=== PATIENT | male | born 1980 | race Two or more races ===

== ENCOUNTER 2023-04-01 08:01 | Emergency (ER) | payer OTHER, SELFPAY ==
[2023-04-01] VITALS (15 sets, daily range): BP systolic 118–124; BP diastolic 72–90; PULSE 96–118; RESP 10–24; TEMP 37.1; O2SAT 82–99; BMI 43.9
--- NOTE | 2023-04-01 08:09 | XR_ITS ---
The [address] [address] Patient Name: GAMA WEINBERG MRN: [id number] date: 1980 Sex: M Assigned Patient Location: ER Current Patient Location: ED.MAIN Accession/Order Number: [id number] Exam Date: 04/01/2023 08:18 Report Date: 04/01/2023 08:44 At the request of: ANANTH CARRION Procedure: XR chest 1V EXAMINATION: XR chest 1V HISTORY: sob , cough, dizziness COMPARISON: 01/30/2020 XR abdomen with PA chest FINDINGS: LUNGS: No significant pulmonary parenchymal abnormalities. VASCULATURE: No increased pulmonary vasculature. PLEURA: No pneumothorax, effusion, or pleural thickening. CARDIAC: No cardiomegaly or cardiac silhouette abnormality. MEDIASTINUM: No visible mass or adenopathy. BONES: No fracture or visible bone lesion. OTHER: Negative. XR/XR chest 1V IMPRESSION: 1. No acute cardiopulmonary process. Electronically authenticated by: TEREZA HULL Date: 04/01/2023 08:44
--- NOTE | 2023-04-01 08:09 | ECG_ITS ---
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
--- NOTE | 2023-04-01 08:19 | ED.SOB1 ---
HPI - SOB/Dyspnea General Chief Complaint: Shortness of Breath/Dyspnea Stated Complaint: SHORTNESS OF BREATH Time Seen by Provider: 04/01/23 08:08 Source: patient Mode of arrival: walk-in Limitations: no limitations History of Present Illness HPI Narrative: The patient have history of asthma presented to the ER with shortness of breath that started yesterday, he mentioned having a cough that is dry denying any nausea vomiting at the moment although he has some nausea initially. No chest pain no dizziness no headache The patient have no diarrhea and no abdominal pain no exposure to anybody with similar symptoms that he knows of The patient also was complaining of generalized body ache The patient does not use an inhaler at home Related Data Home Medications Medication Instructions Recorded Confirmed atorvastatin 20 mg tablet 20 mg PO DAILY 04/01/23 04/01/23 hydrochlorothiazide 50 mg tablet 50 mg PO DAILY 04/01/23 04/01/23 metoprolol tartrate 25 mg tablet 25 mg PO Q12H 04/01/23 04/01/23 potassium chloride 20 mEq 20 meq PO DAILY 04/01/23 04/01/23 tablet,extended release Previous Rx's Medication Instructions Recorded albuterol sulfate 90 mcg/actuation 2 inh inhalation Q6H PRN shortness 04/01/23 aerosol inhaler of breath or wheezing #6.7 grams guaifenesin 600 mg tablet, 600 mg PO BID PRN cough #20 tabs 04/01/23 extended release 12 hr (Mucinex) potassium chloride 20 mEq 40 meq PO DAILY 3 days #6 tabs 04/01/23 tablet,extended release prednisone 50 mg tablet 50 mg PO DAILY 3 days #3 tabs 04/01/23 Allergies Allergy/AdvReac Type Severity Reaction Status Date / Time No Known Drug Allergies Allergy Verified 04/01/23 08:04 Review of Systems ROS Status of ROS 10 or more systems reviewed and unremarkable except as noted in history and below Exam Narrative Exam Narrative: Nurses notes and vital signs reviewed and patient is not hypoxic. General: Well-appearing and in no apparent distress. Skin: Warm, dry, no pallor noted. No rash. Head: Normocephalic, atraumatic. Neck: Supple, non-tender. Eye: Pupils are equal, round and EOMI. No scleral icterus. Ears, Nose, Mouth, and Throat: TM are clear, no nasal mucosal hypertrophy. Oral mucosa is moist, no posterior oropharynx erythema, uvula is mid-line Cardiovascular: Regular Rate and Rhythm without murmur, gallop or rub. Respiratory: Distant breathing sound bilaterally Lungs are clear to auscultation, no wheezing, rales or rhonchi Chest Wall: no tenderness Back: No midline thoracic or lumbar vertebral tenderness. No CVA tenderness Musculoskeletal: normal ROM, no calf or popliteal tenderness, no lower extremity edema/swelling GI: Abdomen is soft, non-distended. Normal bowel sounds. No masses appreciated. No tenderness to palpation. No rebound, guarding, or rigidity noted. Neurological: A&O x4. No cranial nerve dysfunction observed. No truncal ataxia. Moves all extremities. Sensation intact. Psychiatric: Cooperative and interactive. Normal mood and affect. Constitutional Vital Signs, click to edit/add: Last Vital Signs Temp 98.8 F 04/01/23 08:04 Pulse 98 H 04/01/23 09:57 Resp 23 04/01/23 09:57 BP 118/72 04/01/23 09:57 Pulse Ox 94 L 04/01/23 09:50 O2 Del Method Room Air 04/01/23 08:40 Course Vital Signs Vital signs: Vital Signs Temperature 98.8 F 04/01/23 08:04 Pulse Rate 118 H 04/01/23 08:04 Respiratory Rate 24 04/01/23 08:04 Blood Pressure 124/90 04/01/23 08:04 Pulse Oximetry 96 04/01/23 08:04 Oxygen Delivery Method Room Air 04/01/23 08:04 Temperature 98.8 F 04/01/23 08:04 Pulse Rate 98 H 04/01/23 09:57 Respiratory Rate 23 04/01/23 09:57 Blood Pressure 118/72 04/01/23 09:57 Pulse Oximetry 94 L 04/01/23 09:50 Oxygen Delivery Method Room Air 04/01/23 08:40 MDM - SOB/Dyspnea MDM Narrative Medical decision making narrative: The patient EKG upon presentation showing sinus tachycardia with a heart rate [address] elevation or depression The patient CBC shows no leukocytosis chemistry was within normal except for the hypokalemia and acute kidney injury potassium was 2.6 and the patient was provided with p.o. potassium and The patient was provided IV fluids as well as Solu-Medrol and breathing treatment after which she was feeling better he was discharged home after he was provided with 2 doses of p.o. potassium and discharged home with 3 days of 40 mEq p.o. daily potassium after he stops his daily 20 until he is done with the 40 mEq he was provided in the ER and then he will resume his medication The patient to follow-up with his doctor within the week for further evaluation of his kidney function as well as his potassium level Magnesium level was normal and the patient was discharged with continued supportive care and hydration he is to come back to the ER in case of new symptoms The patient is to follow up with primary care physician in next 2-3 days or to return to the emergency department should any of the signs or symptoms worsen or new symptoms develop. The patient agrees with the following Diagnosis and Treatment plan and the patient will be discharged home. Lab Data Labs: Lab Results 04/01/23 Range/Units 08:16 WBC 9.1 (4.0-11.0) 10^3/uL RBC 4.78 (4.70-6.10) 10^6/uL Hgb 14.0 (14.0-18.0) g/dL Hct 42.8 (42.0-54.0) % MCV 89.5 (80.0-94.0) fL MCH 29.3 (25.9-34.0) pg MCHC 32.7 (29.9-35.2) g/dL RDW 14.6 (11.0-15.0) % Plt Count 343 (150-450) 10^3/uL MPV 8.9 L (9.5-13.5) fL Neut % (Auto) 75.3 H (43.0-75.0) % Lymph % (Auto) 5.1 L (20.5-60.0) % [place] % (Auto) 15.6 H (1.7-12.0) % Eos % (Auto) 2.9 (0.9-7.0) % Baso % (Auto) 0.7 (0.2-2.0) % Neut # (Auto) 6.8 H (1.4-6.5) 10^3/uL Lymph # (Auto) 0.5 L (1.2-3.8) 10^3/uL [place] # (Auto) 1.4 H (0.3-0.8) 10^3/uL Eos # (Auto) 0.3 (0.0-0.7) 10^3/uL Baso # (Auto) 0.1 (0.0-0.1) 10^3/uL Abs Immat Gran (auto) 0.04 H (0.00-0.03) 10^3/uL Imm/Tot Granulo (auto) 0.4 (0.0-0.5) % PT 10.6 (9.0-11.6) sec INR 1.00 Sodium 137 (136-145) mmol/L Potassium 2.6 L* (3.5-5.1) mmol/L Chloride 95 L (98-107) mmol/L Carbon Dioxide 30.6 (21.0-32.0) mmol/L Anion Gap 14.0 BUN 14.0 (7.0-18.0) mg/dL Creatinine 1.52 H (0.70-1.30) mg/dL Est GFR ( Amer) >60 (>=60) Est GFR (Non-Af Amer) 51 L (>=60) BUN/Creatinine Ratio 9.2 Glucose 125 H (74-106) mg/dL Calcium 8.4 L (8.5-10.1) mg/dL Magnesium 1.9 (1.8-2.4) mg/dL Total Bilirubin 0.3 (0.2-1.0) mg/dL AST 19 (15-37) U/L ALT 30 (16-63) U/L Alkaline Phosphatase 84 (46-116) U/L Troponin I High Sens 5.4 (4.0-76.1) pg/mL Total Protein 7.6 (6.4-8.2) g/dL Albumin 3.3 L (3.4-5.0) g/dL Globulin 4.3 g/dL Albumin/Globulin Ratio 0.8 Discharge Plan Discharge Chief Complaint: Shortness of Breath/Dyspnea Clinical Impression: Acute bronchitis, viral, Acute asthma exacerbation, Acute hypokalemia, Acute renal failure Patient Disposition: Home, Self-Care Time of Disposition Decision: 09:29 Condition: Good Prescriptions / Home Meds: New prednisone 50 mg tablet 50 mg PO DAILY 3 Days Qty: 3 0RF guaifenesin [Mucinex] 600 mg tablet extended release 12hr 600 mg PO BID PRN (Reason: cough) Qty: 20 0RF albuterol sulfate 90 mcg/actuation HFA aerosol inhaler 2 inh inhalation Q6H PRN (Reason: shortness of breath or wheezing) Qty: 6.7 0RF potassium chloride 20 mEq tablet extended release 40 meq PO DAILY 3 Days Qty: 6 0RF No Action atorvastatin 20 mg tablet 20 mg PO DAILY hydrochlorothiazide 50 mg tablet 50 mg PO DAILY metoprolol tartrate 25 mg tablet 25 mg PO Q12H potassium chloride 20 mEq tablet extended release 20 meq PO DAILY Instructions: Asthma (ED), Acute Kidney Injury (DC), Hypokalemia (ED), Acute Bronchitis (ED) Stand Alone Forms: Portal Instructions Referrals: ALEXA BELL [Primary Care Provider] - 1 week Discharge Date/Time: 04/01/23 10:05
[2023-04-01 08:26] LABS: Basophils Absolute Auto 0.1 10^3/uL (0.0-0.1); Basophils Percent Auto 0.7 % (0.2-2.0); Eosinophils Absolute Auto 0.3 10^3/uL (0.0-0.7); Eosinophils Percent Auto 2.9 % (0.9-7.0); Hematocrit 42.8 % (42.0-54.0); Immature Granulocytes Abs Auto 0.04 10^3/uL (0.00-0.03); Immature Granulocytes Pct Auto 0.4 % (0.0-0.5); Lymphocytes Absolute Auto 0.5 10^3/uL (1.2-3.8); Lymphocytes Percent Auto 5.1 % (20.5-60.0); Mean Corpuscular HGB Conc 32.7 g/dL (29.9-35.2); Mean Corpuscular Hemoglobin 29.3 pg (25.9-34.0); Mean Corpuscular Volume 89.5 fL (80.0-94.0); Mean Platelet Volume 8.9 fL (9.5-13.5); Monocytes Absolute Auto 1.4 10^3/uL (0.3-0.8); Monocytes Percent Auto 15.6 % (1.7-12.0); Neutrophils Absolute Auto 6.8 10^3/uL (1.4-6.5); Neutrophils Percent Auto 75.3 % (43.0-75.0); Platelet Count 343 10^3/uL (150-450); Red Blood Count 4.78 10^6/uL (4.70-6.10); Red Cell Distribution Width 14.6 % (11.0-15.0); White Blood Count 9.1 10^3/uL (4.0-11.0)
[2023-04-01 08:35] LABS: Prothrombin Time 10.6 sec (9.0-11.6)
[2023-04-01 08:37] LABS: Alanine Aminotransferase 30 U/L (16-63); Albumin Globulin Ratio 0.8; Albumin Level 3.3 g/dL (3.4-5.0); Alkaline Phosphatase 84 U/L (46-116); Aspartate Amino Transferase 19 U/L (15-37); BUN Creatinine Ratio 9.2; Bilirubin Total 0.3 mg/dL (0.2-1.0); Calcium 8.4 mg/dL (8.5-10.1); Carbon Dioxide 30.6 mmol/L (21.0-32.0); Chloride 95 mmol/L (98-107); Estimated GFR (African America >60 (>=60); Estimated GFR (Non-African Ame 51 (>=60); Globulin 4.3 g/dL; Glucose 125 mg/dL (74-106); Sodium 137 mmol/L (136-145); Total Protein 7.6 g/dL (6.4-8.2)
[2023-04-01 08:39] LABS: Troponin I High Sensitivity 5.4 pg/mL (4.0-76.1)
[2023-04-01] MEDS: IPRATROPIUM/ALBUTEROL SULFATE 3 ML AMPUL.NEB IH (08:39)
[2023-04-01 08:41] LABS: Potassium 2.6 mmol/L (3.5-5.1)
[2023-04-01] MEDS: METHYLPREDNISOLONE SOD SUCC PF 125 MG/2 ML VIAL IVP (08:43)
[2023-04-01 08:48] LABS: Magnesium 1.9 mg/dL (1.8-2.4)
[2023-04-01] MEDS: 0.9 % SODIUM CHLORIDE 1,000 ML 1000 ML IV (08:57)
[2023-04-01] MEDS: POTASSIUM CHLORIDE 10 MEQ ER TABLET 40 MEQ PO ×2 (08:58→10:00)
== END 2023-04-01 10:05 | disposition home or self-care (01) ==
PROVIDERS: Emergency Provider Emergency Medicine; PCP Family Medicine
DX: J20.9 Acute bronchitis, unspecified (principal); J45.901 Unspecified asthma with (acute) exacerbation; E87.6 Hypokalemia; N17.9 Acute kidney failure, unspecified
CPT/HCPCS: 36415; 71045; 80053; 83735; 84484; 85025; 85610; 93005; 94640; 96374; 99285; J2930

== ENCOUNTER 2024-09-07 19:50 | Emergency (ER) | payer OTHER, SELFPAY ==
[2024-09-07] VITALS (32 sets, daily range): BP systolic 115–152; BP diastolic 78–118; PULSE 86–117; TEMP 36.8; O2SAT 93–98; BMI 44.6
--- OUTSIDE RECORDS SUMMARY | 2024-09-07 19:56 | XMS_ITS | CCD ---
Author Organization [facility] Care Team Providers Care Kaiako Kura [place] Name Role Phone PHYSICIAN, DEFAULT Unavailable Unavailable PHYSICIAN, DEFAULT Unavailable Unavailable DR ALEXA BELL Primary Care Unavailable KAYLA CH Admitting Unavailable KAYLA CH Attending Unavailable KAYLA CH Consulting Unavailable PHILIP DODSON Consulting Unavailable DR ALEXA BELL Primary Care Unavailable MARILIA WHEELER Admitting Unavailable MARILIA WHEELER Attending Unavailable MARILIA WHEELER Consulting Unavailable Corpordebbie PAULINO, Doctor Unavailable Unavailable ALEXA BELL Attending Unavailable ALEXA BELL Attending Unavailable Gaurang Sutton MD, Mathew Unavailable Unavailabl e Gaurang Sutton MD, Mathew Unavailable Unavailabl e Gaurang Sutton MD, Mathew Unavailable Unavailabl e Gaurang Sutton MD, Mathew Unavailable Unavailabl e Gaurang Sutton MD, Mathew Unavailable Unavailabl meghna Paz MD, Doctor Unavailable Unavailable Corporate, Doctor Attending Unavailable Al Shweyenni, Mathew Attending Unavailable Mady Irving Referring Unavailable Al Shweiki, Mathew Attending Unavailable Al Shweiki, Mathew Attending Unavailable Al Shweiki, Mathew Attending Unavailable Al Shweiki, Mathew Attending Unavailable No Referring Doc, No Ref Doc Referring Kacey vailable Al Shweiki, Mathew Attending Unavailable Al Shweiki, Mathew Attending Unavailable No Referring Doc, No Ref Doc Referring Kacey vailable Al Shweiki, Mathew Attending Unavailable Al Shweiki, Mathew Referring Unavailable Corporate, Doctor Attending Unavailable Mady Irving Referring Unavailable Al Shweiki, Mathew Attending Unavailable Al Shweiki, Mathew Attending Unavailable Al Shweiki, Mathew Attending Unavailable Corporate, Doctor Attending Unavailable Al Shweiki, Mathew Attending Unavailable Corporate, Doctor Attending Unavailable Al Shweyenni, Mathew Attending Unavailable Gaurang Sutton MD, Mathew Unavailable Unavailabl e Medications Current Medications Medication Drug Class(es) Dates Sig (Normalized) Sig (Original) dorzolamide 20 mg/ml ophthalmic solution (13 sources) Carbonic Anhydrase Inhibitor Start: 06-04-2024 End: 08-11-2024 take 1 drop(s) into the eye(s) three times daily DORZOLAMIDE HCL 2% EYE DROPS INSTILL 1 DROP IN BOTH EYES 3 TIMES A DAY - Active Start: 05-07-2024 End: 06-04-2024 take 1 drop(s) into the eye(s) three times daily dorzolamide 2 % eye drops instill 1 drop by ophthalmic route 3 times every day into both eyes 1 drop - No Longer Active substitutions are acceptable Start: 01-04-2024 take 1 drop(s) into the eye(s) three times daily dorzolamide 2 % eye drops instill 1 drop by ophthalmic route 3 times every day into both eyes 1 drop - Active substitutions are acceptable Comment on above: substitutions are ac ceptable hydroCHLOROthiazide 50 mg oral tablet (8 sources) Thiazide Diuretic take 1 tablet by mouth once daily hydrochlorothiazide 50 mg tablet take 1 tablet by oral route every day 50 MG - Active metoprolol tartrate 25 mg oral tablet (8 sources) beta-Adrenergic Moni take 1 tablet by mouth twice daily metoprolol tartrate 25 mg tablet take 1 tablet by oral route 2 times every day 25 MG - Active rosuvastatin calcium 5 mg oral tablet (8 sources) HMG-CoA Reductase Inhibitor take 1 tablet by mouth once daily Crestor 5 mg tablet take 1 tablet by oral route every day 5 MG - Active Completed/Discontinued Medications Medication Drug Class(es) Dates Sig (Normalized) Sig (Original) dorzolamide 2 % (PF) eye drops (3 sources) Start: 01-04-2024 End: 01-04-2024 take 1 drop(s) into the eye(s) three times daily dorzolamide 2 % (PF) eye drops instill 1 DROP IN BOTH EYES THREE TIMES DAILY - No Longer Active Start: 01-02-2024 End: 01-04-2024 take 1 drop(s) into the eye(s) three times daily dorzolamide 2 % (PF) eye drops instill 1 DROP IN BOTH EYES THREE TIMES DAILY - No Longer Active Problems Active Problems Problem Classification Problem Date Documented Da te Episodic/Chronic Blindness and vision defects (20 sources) Unspecified night blindness Episodic Cataract (20 sources) Posterior subcapsular polar age-related cataract, bilateral; Translations: [Anterior chamber intraocular lens present] Onset: 05-07-2024 Chronic Other aftercare (1 source) Other oysterman (current) drug therapy; Translations: [OTH RADIO ENGINEER CURRENT DRUG THERAPY] Onset: 07-04-2022 Episodic Other circulatory disease (20 sources) Elevated blood-pressure reading, without diagnosis of hypertension Episodic Other eye disorders (8 sources) Tear film insufficiency; Translations: [Tear film insufficiency] Episodic Other eye disorders (15 sources) Dry eye syndrome of bilateral lacrimal glands; Translations: [Dry eye syndrome, bilateral] Onset: 05-07-2024 Episodic Other nutritional; endocrine; and metabolic disorders (1 source) Body mass index (BMI) 40.0-44.9, adult; Translations: [BODY MASS INDEX BMI 40.0-44.9 ADULT] Onset: 07-04-2022 Chronic Other nutritional; endocrine; and metabolic disorders (1 source) Morbid (severe) obesity due to excess calories; Translations: [MORBID SEVERE OBES D/T EXCESS OLIVE] Onset: 07-04-2022 Chronic Residual codes; unclassified (1 source) Acquired absence of other specified parts of digestive tract; Translations: [ACQ ABSENCE OTH PART DIGESTV TRACT] Onset: 07-04-2022 Episodic Retinal detachments; defects; vascular occlusion; and retinopathy (20 sources) Retinitis pigmentosa; 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, bilateral] Onset: 07-10-2018 Resolved: 03-15-2022 11-17-2015 Chronic Substance-related disorders (1 source) Nicotine dependence, cigarettes, uncomplicated; Translations: [NICOTINE DEPEND CIGARETTES UNCOMP] Onset: 07-04-2022 Chronic Unclassified (3 sources) LOW BACK PAIN, UNSPECIFIED; Translations: [LOW BACK PAIN, UNSPECIFIED] Onset: 07-04-2022 Past or Other Problems Problem Classification Problem Date Documented Date Episodic/Chronic Abdominal pain (3 sources) Unspecified abdominal pain; Translations: [UNSPECIFIED ABDOMINAL PAIN] Onset: 12-04-2021 Episodic Noninfectious gastroenteritis (1 source) Noninfective gastroenteritis and colitis, unspecified; Translations: [NONINFECTIVE GE AND COLITIS UNS] Onset: 12-06-2021 Episodic Unclassified (1 source) LOW BACK PAIN, UNSPECIFIED; Translations: [LOW BACK PAIN, UNSPECIFIED] Onset: 07-03-2022 Unclassified (8 sources) CMD (chief complaint) Onset: 03-14-2023 Unclassified (16 sources) blurry vision (chief complaint) Onset: 11-17-2015 Resolved: 11-06-2018 Unclassified (8 sources) cystoid macular degeneration (chief complaint) bright flashes of light (chief complaint) Onset: 08-21-2018 Unclassified (8 sources) CME (chief complaint) blurred vision (chief complaint) flashes (chief complaint) Onset: 05-29-2018 Unclassified (8 sources) CME (chief complaint) blurry vision (chief complaint) Onset: 01-23-2018 Unclassified (8 sources) cystoid macular edema (chief complaint) stable vision (chief complaint) Onset: 10-24-2017 Unclassified (8 sources) cystoid macular degeneration (chief complaint) blurry vision improvement (chief complaint) Onset: 09-26-2017 Unclassified (8 sources) possible new cystic edema (chief complaint) blurry vision (chief complaint) Onset: 08-22-2017 Unclassified (7 sources) retinitis pigmentosa/ CME (chief complaint) Onset: 01-02-2024 Results Test Name Value Interpretation Reference Range Facility CBC AUTO DIFFon 07-03-2022 BASO # 0.1 103/ul Normal 0.0-0.1 [facility] Comment on above: Performed By: #### C BC #### [facility] [address] [place] [address] Dr. Telma Miller Basophils/100 WBC (Bld) 0.8 % Normal 0.2-2.0 [facility] Comment on above: Performed By: #### C BC #### [facility] [address] [place] [address] Dr. Telma Miller EO # 0.3 103/ul Normal 0.0-0.7 [facility] Comment on above: Performed By: #### C BC #### [facility] [address] [place] [address] Dr. Telma Miller Eosinophils/100 WBC (Bld) 2.3 % Normal 0.9-7.0 [facility] Comment on above: Performed By: #### C BC #### [facility] [address] [place] [address] Dr. Telma Miller Erythrocyte distribution width (RBC) [Ratio] 19.7 % Critically high 11.0-15.0 [facility] Comment on above: Performed By: #### C BC #### [facility] [address] [place] [address] Dr. Telma Miller Hematocrit (Bld) [Volume fraction] 34.4 % Critically low 42.0-54.0 [facility] Comment on above: Performed By: #### C BC #### [facility] [address] [place] [address] Dr. Telma Miller Hemoglobin (Bld) [Mass/Vol] 9.9 g/dL Critically low 14.0-18.0 [facility] Comment on above: Performed By: #### C BC #### [facility] [address] [place] [address] Dr. Telma Miller IG # 0.05 10e3/ul Critically high 0.00-0.03 [facility] Comment on above: Performed By: #### C BC #### [facility] [address] [place] [address] Dr. Telma Miller IG % 0.5 % Normal 0.0-0.5 [facility] Comment on above: Performed By: #### C BC #### [facility] [address] [place] [address] Dr. Telma Miller LYMPH # 1.9 103/ul Normal 1.2-3.8 [facility] Comment on above: Performed By: #### C BC #### [facility] [address] [place] [address] Dr. Telma Miller Lymphocytes/100 WBC (Bld) 17.6 % Critically low 20.5-60.0 [facility] Comment on above: Performed By: #### C BC #### [facility] [address] [place] [address] Dr. Telma Miller MANUAL DIFF REQ NO Normal [facility] Comment on above: Performed By: #### C BC #### [facility] [address] [place] [address] Dr. Telma Miller MCH (RBC) [Entitic mass] 20.1 pg Critically low 25.9-34.0 [facility] Comment on above: Performed By: #### C BC #### [facility] [address] [place] [address] Dr. Telma Miller MCHC (RBC) [Mass/Vol] 28.8 g/dL Critically low 29.9-35.2 [facility] Comment on above: Performed By: #### C BC #### [facility] [address] [place] [address] Dr. Telma Miller MCV (RBC) [Entitic vol] 69.8 fL Critically low 80.0-94.0 [facility] Comment on above: Performed By: #### C BC #### [facility] [address] [place] [address] Dr. Telma Miller MONO # 1.0 103/ul Critically high 0.3-0.8 [facility] Comment on above: Performed By: #### C BC #### [facility] [address] [place] [address] Dr. Telma Miller Monocytes/100 WBC (Bld) 8.8 % Normal 1.7-12.0 [facility] Comment on above: Performed By: #### C BC #### [facility] [address] [place] [address] Dr. Telma Miller NEUT # 7.7 103/ul Critically high 1.4-6.5 [facility] Comment on above: Performed By: #### C BC #### [facility] [address] [place] [address] Dr. Telma Miller Neutrophils/100 WBC (Bld) 70.0 % Normal 43.0-75.0 [facility] Comment on above: Performed By: #### C BC #### [facility] [address] [place] [address] Dr. Telma Miller Platelet mean volume (Bld) [Entitic vol] 8.6 fL Critically low 9.5-13.5 [facility] Comment on above: Performed By: #### C BC #### [facility] [address], [place] [address] Dr. Telma Miller PLT 564 103/ul Critically high 150-450 [facility] Comment on above: Performed By: #### C BC #### [facility] [address], [place] [address] Dr. Telma Miller RBC 4.93 106/ul Normal 4.70-6.10 [facility] Comment on above: Performed By: #### C BC #### [facility] [address], [place] [address] Dr. Telma Miller WBC 11.0 103/ul Normal 4.0-11.0 [facility] Comment on above: Performed By: #### C BC #### [facility] [address], [place] [address] ABD/PELVIS WO CONon 07-03 CT ABD/PELVIS WO CON EXAM: CT ABD/PELVIS WO CON 07/03/2022 12:40 AM EST [facility]001 CLINICAL STATEMENT: CALCULUS OF KIDNEY COMPARISON: 01/29/2020 TECHNIQUE: Helically acquired images were obtained of the abdomen and pelvis without IV contrast. No oral contrast was administered. AEC is utilized. 2-D reconstructed images are provided. FINDINGS: Cholecystectomy. There are no radiopaque renal or ureteric calculi. There is no hydronephrosis or hydroureter. The upper abdominal solid organs are unremarkable. There is no bowel obstruction or free air. There is no ascites. There is no evidence of aortic aneurysm. There is no retroperitoneal adenopathy. There is no appendicitis. Descending colon and sigmoid diverticulosis without acute diverticulitis. There are no pelvic masses or loculated fluid collections. The lung bases are clear. There is posterior left diaphragmatic hernia containing retroperitoneal fat. Multilevel degenerative changes lumbosacral spine. The right buttock is unremarkable. There are no destructive bone lesions identified. IMPRESSION: No radiopaque renal or ureteric calculi. No hydronephrosis or hydroureter. Descending colon and sigmoid diverticulosis without acute diverticulitis. Electronically authenticated by: BINOR SAID Date: 2022-07-03 01:40 Normal [facility] ER URINE PROFILEon 3 Bilirubin Ql (U) Negative Normal NEGATIVE [facility] Comment on above: Performed By: #### E RUR #### [facility] [address] [place] [address] Dr. Telma Miller Clarity (U) CLEAR Normal CLEAR [facility] Comment on above: Performed By: #### E RUR #### [facility] [address] [place] [address] Dr. Telma Miller Color (U) YELLOW Normal YELLOW [facility] Comment on above: Performed By: #### E RUR #### [facility] [address] [place] [address] Dr. Telma HOUSE A micrscopic examination will be performed if indicated. Normal [facility] Comment on above: Performed By: #### E RUR #### [facility] [address] [place] [address] Dr. Telma Miller Glucose Ql (U) Negative Normal NEGATIVE [facility] Comment on above: Performed By: #### E RUR #### [facility] [address] [place] [address] Dr. Telma Miller Hemoglobin Ql (U) Negative Normal NEGATIVE [facility] Comment on above: Performed By: #### E RUR #### [facility] [address] [place] [address] Dr. Telma Miller Ketones Ql (U) TRACE Abnormal NEGATIVE [facility] Comment on above: Performed By: #### E RUR #### [facility] [address] [place] [address] Dr. Telma Miller LEUKOCYTES Negative Normal NEGATIVE [facility] Comment on above: Performed By: #### E RUR #### [facility] [address] [place] [address] Dr. Telma Miller Nitrite Ql (U) Negative Normal NEGATIVE [facility] Comment on above: Performed By: #### E RUR #### [facility] [address] [place] [address] Dr. Telma Miller pH (U) 6.0 [pH] Normal 5-9 [facility] Comment on above: Performed By: #### E RUR #### [facility] [address] [place] [address] Dr. Telma Miller SPEC GRAVITY 1.025 Normal 1.005-<=1.025 [facility] Comment on above: Performed By: #### E RUR #### [facility] [address] [place] [address] Dr. Telma Miller UA PROTEIN TRACE Normal NEGATIVE/ TRACE [facility] Comment on above: Performed By: #### E RUR #### [facility] [address] [place] [address] Dr. Telma Miller UR MICRO IND NOT INDICATED Normal [facility] Comment on above: Performed By: #### E RUR #### [facility] [address] [place] [address] Dr. Telma Miller Urobilinogen Qn (U) 0.2 {Rajeev'U}/dL Normal 0.2 - 1. 0 [facility] Comment on above: Performed By: #### E RUR #### [facility] [address] [place] [address] Dr. Telma Miller PROF CHEM 8 (BAS METB)on Anion gap [Moles/Vol] 9.8 mmol/L Normal [facility] Comment on above: Performed By: #### B MP #### [facility] [address] [place] [address] Dr. Telma Miller Calcium [Mass/Vol] 8.4 mg/dL Critically low 8.5-10.1 [facility] Comment on above: Performed By: #### B MP #### [facility] [address] [place] [address] Dr. Telma Miller Chloride [Moles/Vol] 100 mmol/L Normal 98-107 [facility] Comment on above: Performed By: #### B MP #### [facility] [address] [place] [address] Dr. Telma Miller CO2 [Moles/Vol] 33.5 mmol/L Critically high 21.0-32.0 [facility] Comment on above: Performed By: #### B MP #### [facility] [address] [address] [address] Telma Miller Creatinine [Mass/Vol] 1.14 mg/dL Normal 0.70-1.30 [facility] Comment on above: Performed By: #### B MP #### [facility] [address] [address] [address] Telma Miller EGFR-AF PAKISTANI >60 Normal >=60 [facility] Comment on above: Performed By: #### B MP #### [facility] [address] [address] [address] Telma Miller EGFR-NON AF PAKISTANI >60 Normal >=60 [facility] Comment on above: Performed By: #### B MP #### [facility] [address] [address] [address] Telma Miller Glucose [Mass/Vol] 104 mg/dL Normal 74-106 [facility] Comment on above: Performed By: #### B MP #### [facility] [address] [address] [address] Telma Miller Potassium [Moles/Vol] 3.3 mmol/L Critically low 3.5-5.1 [facility] Comment on above: Performed By: #### B MP #### [facility] [address] [address] [address] Telma Miller Sodium [Moles/Vol] 140 mmol/L Normal 136-145 [facility] Comment on above: Performed By: #### B MP #### [facility] [address] [address] [address] Telma Miller Urea nitrogen [Mass/Vol] 14.0 mg/dL Normal 7.0-18.0 [facility] Comment on above: Performed By: #### B MP #### [facility] [address] [address] [address] Telma Miller Urea nitrogen/Creatinine [Mass ratio] 12.3 mg/mg Normal [facility] Comment on above: Performed By: #### B MP #### [facility] [address] [address] [address] Telma Miller AMYLASEon 12-04-2021 Amylase [Catalytic activity/Vol] 59 U/L Normal 25-115 [facility] Comment on above: Performed By: #### L IPA, CMP, HAILEE #### [facility] [address] [place] [address] Dr. Telma Miller CBC AUTO DIFFon 12-04-2021 BASO # 0.1 103/ul Normal 0.0-0.1 [facility] Comment on above: Performed By: #### C BC #### [facility] [address] [place] [address] Dr. Telma Miller Basophils/100 WBC (Bld) 0.5 % Normal 0.2-2.0 [facility] Comment on above: Performed By: #### C BC #### [facility] [address] [place] [address] Dr. Telma Miller EO # 0.0 103/ul Normal 0.0-0.7 [facility] Comment on above: Performed By: #### C BC #### [facility] [address] [place] [address] Dr. Telma Miller Eosinophils/100 WBC (Bld) 0.2 % Critically low 0.9-7.0 [facility] Comment on above: Performed By: #### C BC #### [facility] [address] [place] [address] Dr. Telma Miller Erythrocyte distribution width (RBC) [Ratio] 16.0 % Critically high 11.0-15.0 [facility] Comment on above: Performed By: #### C BC #### [facility] [address] [place] [address] Dr. Telma Miller Hematocrit (Bld) [Volume fraction] 42.2 % Normal 42.0-54.0 [facility] Comment on above: Performed By: #### C BC #### [facility] [address] [place] [address] Dr. Telma Miller Hemoglobin (Bld) [Mass/Vol] 12.9 g/dL Critically low 14.0-18.0 [facility] Comment on above: Performed By: #### C BC #### [facility] [address] [address] [address] Telma Miller IG # 0.07 10e3/ul Critically high 0.00-0.03 [facility] Comment on above: Performed By: #### C BC #### [facility] [address] [address] [address] Telma Miller IG % 0.5 % Normal 0.0-0.5 [facility] Comment on above: Performed By: #### C BC #### [facility] [address] [address] [address] Telma Miller LYMPH # 1.4 103/ul Normal 1.2-3.8 [facility] Comment on above: Performed By: #### C BC #### [facility] [address] [place] [address] Dr. Telma Miller Lymphocytes/100 WBC (Bld) 9.0 % Critically low 20.5-60.0 [facility] Comment on above: Performed By: #### C BC #### [facility] [address] [address] [address] Telma Miller MANUAL DIFF REQ NO Normal [facility] Comment on above: Performed By: #### C BC #### [facility] [address] [place] [address] Dr. Telma Miller MCH (RBC) [Entitic mass] 24.4 pg Critically low 25.9-34.0 [facility] Comment on above: Performed By: #### C BC #### [facility] [address] [place] [address] Dr. Telma Miller MCHC (RBC) [Mass/Vol] 30.6 g/dL Normal 29.9-35.2 [facility] Comment on above: Performed By: #### C BC #### [facility] [address] [place] [address] Dr. Telma Miller MCV (RBC) [Entitic vol] 79.9 fL Critically low 80.0-94.0 [facility] Comment on above: Performed By: #### C BC #### [facility] [address] [address] [address] Telma Miller MONO # 0.9 103/ul Critically high 0.3-0.8 [facility] Comment on above: Performed By: #### C BC #### [facility] [address] [address] [address] Telma Miller Monocytes/100 WBC (Bld) 5.8 % Normal 1.7-12.0 [facility] Comment on above: Performed By: #### C BC #### [facility] [address] [address] [address] Telma Miller NEUT # 13.0 103/ul Critically high 1.4-6.5 [facility] Comment on above: Performed By: #### C BC #### [facility] [address] [place] [address] Dr. Telma Miller Neutrophils/100 WBC (Bld) 84.0 % Critically high 43.0-75.0 [facility] Comment on above: Performed By: #### C BC #### [facility] [facility] [address] [address] [address] Telma Miller Platelet mean volume (Bld) [Entitic vol] 8.8 fL Critically low 9.5-13.5 [facility] Comment on above: Performed By: #### C BC #### [facility] [address] [address] [address] Telma Miller PLT 563 103/ul Critically high 150-450 [facility] Comment on above: Performed By: #### C BC #### [facility] [address] [address] [address] Telma Miller RBC 5.28 106/ul Normal 4.70-6.10 [facility] Comment on above: Performed By: #### C BC #### [facility] [address] [address] [address] Telma Miller WBC 15.5 103/ul Critically high 4.0-11.0 [facility] Comment on above: Performed By: #### C BC #### [facility] [address] [place] [address] Dr. Telma Miller LIPASEon 12-04-2021 Lipase [Catalytic activity/Vol] 91.0 U/L Normal 73.0-393.0 [facility] Comment on above: Performed By: #### L IPA, CMP, HAILEE #### [facility] [address] [place] [address] Dr. Telma Miller PROF 14(COMP METB)on 022 Albumin [Mass/Vol] 3.4 g/dL Normal 3.4-5.0 [facility] Comment on above: Performed By: #### L IPA, CMP, HAILEE #### [facility] [address] [place] [address] Dr. Telma Miller Albumin/Globulin [Mass ratio] 0.6 {ratio} Normal [facility] Comment on above: Performed By: #### L IPA, CMP, HAILEE #### [facility] [address] [place] [address] Dr. Telma Miller ALP [Catalytic activity/Vol] 107 U/L Normal 46-116 [facility] Comment on above: Performed By: #### L IPA, CMP, HAILEE #### [facility] [address] [place] [address] Dr. Telma Miller ALT [Catalytic activity/Vol] 59 U/L Normal 16-63 [facility] Comment on above: Performed By: #### L IPA, CMP, HAILEE #### [facility] [address] [place] [address] Dr. Telma Miller Anion gap [Moles/Vol] 11.2 mmol/L Normal [facility] Comment on above: Performed By: #### L IPA, CMP, HAILEE #### [facility] [address] [place] [address] Dr. Telma Miller AST [Catalytic activity/Vol] 19 U/L Normal 15-37 [facility] Comment on above: Performed By: #### L IPA, CMP, HAILEE #### [facility] [address] [place] [address] Dr. Telma Miller Bilirubin [Mass/Vol] 0.3 mg/dL Normal 0.2-1.0 [facility] Comment on above: Performed By: #### L IPA, CMP, HAILEE #### [facility] [address] [place] [address] Dr. Telma Miller Calcium [Mass/Vol] 9.0 mg/dL Normal 8.5-10.1 [facility] Comment on above: Performed By: #### L IPA, CMP, HAILEE #### [facility] [address] [place] [address] Dr. Telma Miller Chloride [Moles/Vol] 100 mmol/L Normal 98-107 [facility] Comment on above: Performed By: #### L IPA, CMP, HAILEE #### [facility] [address] [place] [address] Dr. Telma Miller CO2 [Moles/Vol] 31.0 mmol/L Normal 21.0-32.0 [facility] Comment on above: Performed By: #### L IPA, CMP, HAILEE #### [facility] [address] [place] [address] Dr. Telma Miller Creatinine [Mass/Vol] 1.31 mg/dL Critically high 0.70-1.30 [facility] Comment on above: Performed By: #### L IPA, CMP, HAILEE #### [facility] [address] [place] [address] Dr. Telma Miller EGFR-AF PAKISTANI >60 Normal >=60 [facility] Comment on above: Performed By: #### L IPA, CMP, HAILEE #### [facility] [address] [place] [address] Dr. Telma Miller EGFR-NON AF PAKISTANI >60 Normal >=60 [facility] Comment on above: Performed By: #### L IPA, CMP, HAILEE #### [facility] [address] [place] [address] Dr. Telma Miller Globulin (S) [Mass/Vol] 5.3 g/dL Normal [facility] Comment on above: Performed By: #### L IPA, CMP, HAILEE #### [facility] [address] [place] [address] Dr. Telma Miller Glucose [Mass/Vol] 145 mg/dL Critically high 74-106 [facility] Comment on above: Performed By: #### L IPA CMP, HAILEE #### [facility] [address] [address] [address] Telma Miller Potassium [Moles/Vol] 3.2 mmol/L Critically low 3.5-5.1 [facility] Comment on above: Performed By: #### L IPA CMP, HAIELE #### [facility] [address] [address] [address] Telma Miller Protein [Mass/Vol] 8.7 g/dL Critically high 6.4-8.2 [facility] Comment on above: Performed By: #### L IPA CMP, HAILEE #### [facility] [address] [place] [address] Dr. Telma Miller Sodium [Moles/Vol] 139 mmol/L Normal 136-145 [facility] Comment on above: Performed By: #### L IPA CMP, HAILEE #### [facility] [address] [place] [address] Dr. Telma Miller Urea nitrogen [Mass/Vol] 20.0 mg/dL Critically high 7.0-18.0 [facility] Comment on above: Performed By: #### L IPA CMP, HAILEE #### [facility] [address] [place] [address] Dr. Telma Miller Urea nitrogen/Creatinine [Mass ratio] 15.3 mg/mg Normal [facility] Comment on above: Performed By: #### L IPA, CMP, HAILEE #### [facility] [address] [place] [address] Dr. Telma Miller Complete Blood Counton 08-23 Erythrocyte distribution width (RBC) [Ratio] 16.1 % High 11.0-15.0 [facility] Comment on above: Performed By: #### C MP, CBC, LIPD #### [facility] [address] [place], [place] [id number] Hematocrit (Bld) [Volume fraction] 41.3 % Normal 38.5-50.0 [facility] Comment on above: Performed By: #### C MP, CBC, LIPD #### [facility] [address] [place], [place] [id number] Hemoglobin (Bld) [Mass/Vol] 12.9 g/dL Low 13.0-17.1 [facility] Comment on above: Performed By: #### C MP, CBC, LIPD #### [facility] [address] [place], [place] [id number] MCH (RBC) [Entitic mass] 25.7 pg Low 27.0-33.0 [facility] [employer] Comment on above: Performed By: #### C MP, CBC, LIPD #### [facility] [address] [place], [place] [id number] MCHC (RBC) [Mass/Vol] 31.2 g/dL Low 32.0-36.0 [facility] Comment on above: Performed By: #### C MP, CBC, LIPD #### [facility] [address] [place], [place] [id number] MCV (RBC) [Entitic vol] 82 fL Normal 80-100 [facility] Comment on above: Performed By: #### C MP, CBC, LIPD #### [facility] [address] [place], [place] [id number] Platelet mean volume (Bld) [Entitic vol] 8.70 fL Normal 7.50-12.50 [facility] [employer] Comment on above: Performed By: #### C MP, CBC, LIPD #### [facility] [address] [place], [place] [id number] Platelets (Bld) [#/Vol] 448 10*3/uL High 140-400 [facility] Comment on above: Performed By: #### C MP, CBC, LIPD #### [facility] [address] [place], [place] [id number] RBC (Bld) [#/Vol] 5.01 10*6/uL Normal 4.20-5.[address] [facility] Comment on above: Performed By: #### C MP, CBC, LIPD #### [facility] [address], [place] [id number] RDW-SD 48.2 fL Normal 37.0-50.0 [facility] Special[facility] Comment on above: Performed By: #### C MP, CBC, LIPD #### [facility] [address], [place] [id number] WBC (Bld) [#/Vol] 10.0 10*3/uL Normal 3.8-11.0 [facility] Comment on above: Performed By: #### C MP, CBC, LIPD #### [facility] [address], [place] [id number] Comprehensive Metabolic Pane nalini 08-23-2021 Albumin [Mass/Vol] 4.2 g/dL Normal 3.6-5.1 [facility] Comment on above: Performed By: #### C MP, CBC, LIPD #### [facility] [address], [place] [id number] Albumin/Globulin [Mass ratio] 1.4 {ratio} Normal 1.0-2.5 [facility] Comment on above: Performed By: #### C MP, CBC, LIPD #### [facility] [address], [place] [id number] ALP [Catalytic activity/Vol] 81 U/L Normal 40-129 [facility] Comment on above: Performed By: #### C MP, CBC, LIPD #### [facility] [address], [place] [id number] ALT [Catalytic activity/Vol] 26 U/L Normal 9-46 [facility] Comment on above: Result Comment: 03/30 Female reference range changed. Performed By: #### C MP, CBC, LIPD #### [facility] [address], [place] [id number] Anion gap [Moles/Vol] 15 mmol/L Normal 12-20 [facility] Comment on above: Result Comment: Effe ctive 05/05/2019 reference range changed. Performed By: #### C MP, CBC, LIPD #### [facility] [address], [place] [id number] AST [Catalytic activity/Vol] 26 U/L Normal 10-40 [facility] Special[facility] Comment on above: Performed By: #### C MP, CBC, LIPD #### [facility] [address], [place] [id number] Bilirubin [Mass/Vol] 0.39 mg/dL Normal 0.30-1.20 [facility] Comment on above: Performed By: #### C MP, CBC, LIPD #### [facility] [address], [place] [id number] BUN/CREA 15 Ratio Normal 6-22 [facility] Comment on above: Performed By: #### C MP, CBC, LIPD #### [facility] [address], [place] [id number] Calcium [Mass/Vol] 9.2 mg/dL Normal 8.6-10.2 [facility] Comment on above: Performed By: #### C MP, CBC, LIPD #### [facility] [address], [place] [id number] Chloride [Moles/Vol] 98 mmol/L Normal 98-107 [facility] Comment on above: Performed By: #### C MP, CBC, LIPD #### [facility] [address], [place] [id number] CO2 [Moles/Vol] 29 mmol/L Normal 20-31 [facility] Comment on above: Performed By: #### C MP, CBC, LIPD #### [facility] [address], [place] [id number] Creatinine [Mass/Vol] 1.1 mg/dL Normal 0.7-1.4 [facility] Comment on above: Performed By: #### C MP, CBC, LIPD #### [facility] [address], [place] [id number] eGFRAA 92 mL/min/1.73m2 Normal >60 [facility] Specialist Comment on above: Performed By: #### C MP, CBC, LIPD #### [facility] [address], [place] [id number] eGFRNAA 76 mL/min/1.73m2 Normal >60 [facility] Specialist Comment on above: Performed By: #### C MP, CBC, LIPD #### [facility] [address], [place] [id number] Globulin (S) [Mass/Vol] 3.0 g/dL Normal 1.9-3.7 [facility] [employer] Comment on above: Performed By: #### C MP, CBC, LIPD #### [facility] [address], [place] [id number] Glucose [Mass/Vol] 99 mg/dL Normal 65-99 [facility] [employer] Comment on above: Result Comment: For FASTING Glucose --- ADA reference ranges: Normal 65-99 mg/dl Prediabetes 100-125 Diabetes >/= 126 Performed By: #### C MP, CBC, LIPD #### [facility] [address], [place] [id number] Potassium [Moles/Vol] 3.6 mmol/L Normal 3.5-5.5 [facility] [employer] Comment on above: Performed By: #### C MP, CBC, LIPD #### [facility] [address], [place] [id number] Protein [Mass/Vol] 7.2 g/dL Normal 6.1-8.1 [facility] [employer] Comment on above: Performed By: #### C MP, CBC, LIPD #### [facility] [address], [place] [id number] Sodium [Moles/Vol] 138 mmol/L Normal 135-146 [facility] [employer] Comment on above: Performed By: #### C MP, CBC, LIPD #### [facility] [address], [place] [id number] Urea nitrogen [Mass/Vol] 16 mg/dL Normal 7-25 [facility] [employer] Comment on above: Performed By: #### C MP, CBC, LIPD #### [facility] [address], [place] [id number] Lipid Panelon 08-23-2021 Cholesterol [Mass/Vol] 219 mg/dL High 125-200 [facility] [employer] Comment on above: Result Comment: Low risk < 200mg/dL Borderline risk 201-239 mg/dl High risk > or equal to 240 Performed By: #### C MP, CBC, LIPD #### [facility] [address], [place] [id number] Cholesterol in HDL [Mass/Vol] 52 mg/dL Normal >40 [facility] [employer] Comment on above: Result Comment: High Cardiovascular Risk HDL <40 mg/dL Low Cardiovascular Risk HDL > or equal to 60 mg/dl Performed By: #### C MP, CBC, LIPD #### [facility] [address], [place] [id number] Cholesterol in LDL [Mass/Vol] 150 mg/dL Normal [facility] Specialist Comment on above: Result Comment: LDL ATP III CLASSIFICATION LDL less than 100 mg/dl Optimal LDL 100-129 mg/dl Near or above optimal LDL 130-159 Borderline high LDL 160-189 High LDL greater than 189 mg/dl Very High Performed By: #### C MP, CBC, LIPD #### [facility] [address], [place] [id number] Cholesterol in VLDL [Mass/Vol] 17 mg/dL Normal [facility] Specialist Comment on above: Performed By: #### C MP, CBC, LIPD #### [facility] [address], [place] [id number] Cholesterol.total/C holesterol in HDL [Mass ratio] 4 {ratio} Normal [facility] Specialist Comment on above: Performed By: #### C MP, CBC, LIPD #### [facility] [address], [place] [id number] Triglyceride [Mass/Vol] 86 mg/dL Normal 30-150 [facility] [employer] Comment on above: Result Comment: TRIG ATPIII CLASSIFICATIONS TRIG less than 150 mg/dl Normal TRIG 150-199 mg/dl Borderline High TRIG 200-500 mg/dl High TRIG greather than 500 mg/dl Very High Performed By: #### C MP, CBC, LIPD #### [facility] [address], [place] [id number] Consultation Noteon 02-03-20 20 Consultation Note [id number]. 00CD:127 Normal [facility] RAD - MISCon 02-03-2020 [facility] [id number]:127 Normal [facility] PROGRESSon 2019 PROGRESS HNO ID: [id number] Author: Winston Mancera Service: ? 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 Does not know the name of the drop -mild Posterior subcapsular cataract (PSC) cataracts -not likely major cause of blurry vision H40.003 Glaucoma suspect of both eyes Optic atrophy -was previously taking drops for glaucoma, then told his pressure was fine and instructed to stop -intraocular pressure at 15 both eyes today I have confirmed and edited as necessary the relevant ophthalmic history, ROS, and the neuro exam findings as obtained by others. I have seen and examined this patient. I have discussed the case and the management of this patient's care with the Resident/Fellow, if applicable. I also have reviewed and agree with the assessment and plan as stated above and agree with all of its relevant components. Tiffany Mancera MD 2019 12:23 PM Normal [facility] Encounters Encounter Date Encounter Type Care Provider Facility Start: 08-11-2024 End: 08-11-2024 Mathew Palmer Work Phone: [facility] Start: 08-11-2024 ambulatory Mathew Palmer [facility] [place] Start: 07-14-2024 End: 07-14-2024 Doctor Corporate Work Phone: [facility] Start: 07-14-2024 ambulatory Doctor Corporate [facility] [place] Start: 07-14-2024 End: 07-14-2024 Mathew Palmer Work Phone: [facility] Start: 07-14-2024 ambulatory Mathew Palmer [facility] [place] Start: 07-10-2024 End: 07-10-2024 Doctor Corporate Work Phone: AMALIA Enciso Start: 07-10-2024 ambulatory Doctor Corporate [facility] Start: 07-07-2024 End: 07-07-2024 Mathew Al Shweiki Work Phone: [facility] Start: 07-07-2024 ambulatory Mathew Al Shweiki [facility] [place] Start: 06-04-2024 End: 06-04-2024 Mathew Al Shweiki Work Phone: [facility] Start: 06-04-[address] [facility] Start: 05-27-[address] [facility] Start: 05-07-2024 End: 05-07-2024 Office outpatient visit 25 minutes Mathew Al Shweiki Work Phone: [facility] Start: 05-07-2024 End: 05-07-2024 Doctor Corporate Work Phone: [facility] Start: 05-07-[address] [facility] Start: 05-07-2024 ambulatory Doctor Corporate [facility] Start: 02-29-[address] [facility] Start: 02-08-[address] [facility] Start: 02-04-2024 ambulatory Mathew Al Shweiki [facility] [place] Start: 01-14-[address] [facility] Start: 01-10-[address] [facility] Start: 01-08-2024 End: 01-08-2024 ambulatory ALEXA BELL Not Available Start: 01-04-2024 End: 01-04-2024 Mathew Al Shweiki Work Phone: [facility] Start: 01-04-2024 ambulatory Mathew Al Shweiki [facility] [place] Start: 01-02-2024 End: 01-02-2024 Office outpatient visit 25 minutes Mathew Palmer Work Phone: [facility] Start: 01-02-2024 ambulatory Mathew Merlos [facility] Start: 12-05-2023 End: 12-05-2023 Doctor Corporate Work Phone: [facility]ad[facility] Shantel Start: 12-05-2023 ambulatory Doctor Corporate [facility] Start: 04-10-2023 End: 04-10-2023 ambulatory ALEXA OLIVEIRAA Not Available Start: 03-14-2023 End: 03-14-2023 Office outpatient visit 15 minutes Daniel Akers Work Phone: [facility]ad[facility] Start: 07-03-2022 End: 07-03-[address] ALEXA BELL Facility: Start: 03-15-2022 End: 03-15-2022 Daniel Akers Work Phone: [facility]ad[facility] Start: 12-04-2021 End: 12-04-[address] ALEXA BELL Facility: Start: 11-06-2018 End: 11-06-2018 David Guadalupe Work Phone: [facility] Start: 10-16-2018 End: 10-16-2018 David Guadalupe Work Phone: MARY[facility]adira [facility] Start: 08-21-2018 End: 08-21-2018 David Guadalupe Work Phone: [facility] Start: 07-10-2018 End: 07-10-2018 David Guadalupe Work Phone: RV[facility] Start: 05-29-2018 End: 05-29-2018 David Guadalupe Work Phone: RV[facility]adira [facility] Start: 04-26-2018 End: 04-27-2018 Patient encounter procedure DEFAULT PHYSICIAN Facility:[facility] Start: 01-23-2018 End: 01-23-2018 David Guadalupe Work Phone: [facility] Start: 10-24-2017 End: 10-24-2017 David Booth Anayeli Work Phone: [facility] Start: 09-26-2017 End: 09-26-2017 David Caraballobs Work Phone: [facility] Start: 08-22-2017 End: 08-22-2017 David Emmy Anayeli Work Phone: [facility] Start: 11-17-2015 End: 11-17-2015 Office outpatient new 45 minutes David Guadalupe Work Phone: [facility] Procedures Date Procedure Procedure Detail Performing Clinician Start: 05-07-2024 End: 05-07-2024 Computerized ophthalmic imaging retina Mathew Palmer MD Start: 05-07-2024 Fundus Photos No Charge Doctor Start: 05-07-2024 End: 05-07-2024 Fundus Photos No Charge Bilateral Mathew Palmer MD Start: 05-07-2024 End: 05-07-2024 Medical Forms Mathew Palmer MD Start: 01-02-2024 End: 01-02-2024 Computerized ophthalmic imaging retina Mathew Palmer MD Start: 03-14-2023 End: 03-14-2023 Computerized ophthalmic imaging retina Doctor Corporate PAULINO Start: 03-14-2023 End: 03-14-2023 Fundus Photos No Charge Bilateral Doctor Corporate PAULINO Start: 03-15-2022 End: 03-15-2022 Computerized ophthalmic imaging retina Doctor Corporate [facility] Start: 03-15-2022 End: 03-15-2022 Fundus Photos No Charge Bilateral Doctor Corporate PA[facility] Start: 11-06-2018 End: 11-06-2018 Computerized ophthalmic imaging retina Doctor Corporate PA[facility] Start: 10-16-2018 End: 10-16-2018 Computerized ophthalmic imaging retina Doctor Corporate [facility] Start: 08-21-2018 End: 08-21-2018 Computerized ophthalmic imaging retina Doctor Corporate [facility] Start: 07-10-2018 End: 07-10-2018 Computerized ophthalmic imaging retina Doctor Corporate [facility] Start: 05-29-2018 End: 05-29-2018 Computerized ophthalmic imaging retina Doctor Corporate [facility] Start: 01-23-2018 End: 01-23-2018 Computerized ophthalmic imaging retina Doctor Corporate [facility] Start: 10-24-2017 End: 10-24-2017 Computerized ophthalmic imaging retina Doctor Corporate [facility] Start: 09-26-2017 End: 09-26-2017 Computerized ophthalmic imaging retina Doctor Corporate [facility] Start: 08-22-2017 End: 08-22-2017 Computerized ophthalmic imaging retina Doctor [facility] Start: 11-17-2015 End: 11-17-2015 Computerized ophthalmic imaging retina Doctor [employer] [facility] Plan of Treatment Date Care Activity Detail Author Start: 11-07-2024 Osbaldo Salinas 6 Mnth DFE/ OCT/ Colors [facility] Work Phone: Start: 05-07-2024 Osbaldo Salinas 4M O FU OCT COLORS [facility] Work Phone: Start: 01-02-2024 Osbaldo Salinas [facility] Work Phone: Start: 03-14-2023 Smoking cessation education Tobacco cessation counseling [facility] Start: 03-15-2022 Smoking cessation education Tobacco cessation counseling [facility] Immunizations Immunization Date Immunization Notes Care Provider Fa [facility] 03-20-1991 influenza, seasonal, injectable Doctor Alisate [facility] Comment on above: Source: Source Unspe cified Payers Date Payer Category Payer Unknown [id number] [id number] 1982 Unknown [id number] 2.16.84 [id number] 1982 Unknown [id number] 2.16.84 0.1.841410.3.579.2.593 1982 Unknown [id number] 2.16.84 0.1.241814.3.579.2.1259 1982 Unknown [id number] 2.16.840 .1.821361.3.579.2.1259 1982 Unknown [id number] 2.16.84 0.1.234984.3.579.2.1347 1982 Unknown [id number] 2.16.84 0.1.977053.3.579.2.1347 1982 Unknown [id number] 2.16.84 0.1.494665.3.579.2.1346 1982 Unknown [id number] 2.16.84 0.1.253032.3.579.2.1346 1982 Unknown [id number] 2.16.84 0.1.874050.3.579.2.1346 1982 Unknown [id number] 2.16.84 0.1.209005.3.579.2.1346 1982 Unknown [id number] 2.16.84 0.1.759369.3.579.2.1346 1982 Unknown [id number] 2.16.84 0.1.686238.3.579.2.1346 1982 Unknown [id number] 2.16.84 0.1.515127.3.579.2.1346 1982 Unknown [id number] 2.16.84 0.1.240632.3.579.2.1346 1982 Unknown [id number] 2.16.840 .1.853125.3.579.2.1346 1982 Unknown [id number] 2.16.840 .1.611305.3.579.2.1346 1982 Unknown [id number] 2.16.840 .1.888732.3.579.2.1346 1982 Unknown [id number] 2.16.840 .1.601656.3.579.2.1346 1982 Unknown [id number] 2.16.84 0.1.967993.3.579.2.1346 1982 Unknown [id number] 2.16.840. 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 Patient states that he can not tell any difference in his vision. Patient states that he can see some floaters from time to time but no flashes of light. Patient has appointment with the site center next month. retinitis pigmentosa / CME The 43 year old male presents for evaluation of Retinitis pigmentosa/CME in the right eye and left eye. Patient reports vision has gotten worse since last year. States he has been having difficulty at work. States he is unable to work due to vision. Patient has paperwork present today. Reports vision becomes blurred at first and then will fade out where he cannot see in front of him. Denies current flashes of light or floaters. Denies ocular pain. Patient is using artificial tears PRN. CMD The 43 year old patient presents for evaluation of CMD in the right eye and left eye. Patient reports stable vision. Negative floaters and eye pain. Continued intermittent flashes OU. No complaints from the patient at this time. Retinitis Pigmentosa The 42 year old male presents for evaluation of Retinitis Pigmentosa in the right eye and left eye. Patient reports he is unsure if his vision has changed over the last couple years. Patient notes he has tunnel vision as well as blurry vision in both OS>OD. Patient notes he has floaters in both eyes, but denies ocular pain or flashes of light in both eyes. blurry vision The 38 year old male called for an emergency visit due to blurry vision in both eyes. The patient reports he believes the alphagan is causing increased blurred vision along with matter discharge and redness ou. The patient states the symptoms are worse at his workplace due to the lighting. The patient stopped the alphagan drop one week ago and reports vision still blurry but the redness and mattering have decreased. It affects both near and far vision. The symptom is constant. In addition, the condition is associated with daily activity and chores. The patient does report some flashes and stabbing pain intermittently in both eyes. 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 The patient called for an emergency visit due to increased photophobia ou, much more trouble with lights at work, both eyes are burning and uncomfortable most of the time. These symptoms have gotten worse since last exam in July. It affects both near and far vision. The symptom is constant. In addition, the condition is associated with daily activity and chores. Associated symptoms include: flashes and floaters. bright flashes of light The theresa ent reports several episodes bright flashes of light centrally in both eyes. The onset was sudden. The symptom is occasional. It lasts a few seconds and has happened maybe 4-5 times since last visit 6 weeks ago. 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 The patient reports stable blurry vision since last exam 6 weeks ago. It affects both near and far vision. The symptom is constant. In addition, the condition is associated with daily activity and chores. Patient denies floaters and eye pain. Patient reports he ran out of Alphagan drops on 08-08-18, has not used any drops since then. 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 The patient is unaware of any vision changes since last exam 6 weeks ago. It affects both near and far vision. The symptom is constant. In addition, the condition is associated with daily activity and chores. Patient denies eye pain and flashes. flashes The patient repo rts flashes daily but unsure which eye. The affect his ability to perform daily tasks per patient. blurred vision The patient is p resent for evaluation of blurred vision in the right eye and left eye. It occurs all the time. It affects both near and far vision. The symptom is constant. In addition, the condition is associated with daily activity and chores. Patient denies eye pain and floaters. The patient thought the Alphagan was causing blurry vision and stopped the drops for about 2 weeks, restarted this past Sunday. CME The 38 year old male presents for evaluation of CME in the right eye and left eye. blurry vision The patient is p resent for evaluation of blurry vision in the right eye and left eye since his last visit x3 months ago. Patient notes it is mild and mostly at night. Denies flashes, floaters and eye pain. Patient notes certain light affects his vision. CME The 37 year old male presents for evaluation of CME in the right eye and left eye. stable vision The patient repo rts stable vision in the right eye and left eye for 1 month. The onset was gradual. It affects both near and far vision. The symptom is constant. It occurs all the time. 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 blurry vision improvement The patient notes that the blurry vision OU has improved gradually over the past 5 weeks since his last exam. The patient denies eye pain, flashes, floaters. Patient has been using the drops 3x daily as directed. 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 blurry vision The patient comp lains of worsening blurry vision in the right eye and left eye. It started about 7 months ago. The onset was gradual. It affects both near and far vision. The symptom is constant. It occurs all the time. The condition is severe. The condition is described as fuzzy vision. possible new cystic edema The 37 year old male presents for evaluation of possible new cystic edema in the right eye and left eye. blurry vision The 35 year old male presents for evaluation of blurry vision in both eyes. It started about 2 years ago. It affects both near and far vision. The symptom is intermittent. It occurs with no pattern. The condition is mild. The condition is described as itchy. In addition, the condition is associated with sunlight/headlights. The patient denies flashes, eye pain, headaches. Family history of RP-Mother, grandmother. 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 Guadalupe for follow up exam and OCT. Related to Cystoid macular degeneration, bilateral Impression/Plan Related to Cysto id macular degeneration, bilateral Impression/Plan Related to Retin itis pigmentosa Impression/Plan Related to Bilat eral changes in retinal vascular appearance Impression/Plan Related to Poste rior subcapsular polar age-related cataract, bilateral Return in 3-[address] Guadalupe for follow up exam and OCT. 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 Guadalupe for follow up exam and OCT. 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 Guadalupe for follow up exam and OCT. 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 Guadalupe for follow up exam and OCT. 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 Guadalupe for follow up exam and OCT. 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 Related to Bilateral changes in retinal vascular appearance Impression/Plan - Rosa gamez has retinitis pigmentosa with typical bone spiculing present bilaterally on examination and diagnostic testing today. Family history of this disease has been reported by the patient, in addition to progressive difficulty seeing at night and decreased peripheral vision. Discussed Vitamin A studies that show slowed progression of the disease with proper dosage; cautioned patient not to consider this vitamin therapy if he is currently a smoker. Improving CME noted today, which we will continue to treat with topical steroids (see plan #1). Advised patient to call with any changes, as worsening macular edema can develop and be treated if necessary. Recommend she continue to have periodic visual field testing with his primary eyecare specialist, Dr. Irving. 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 Patient is responding to the topical steroids; vision and edema show slight improvement today. Based on today's examination, testing, and the patient's visual symptoms, I am recommending continued Pred Forte bid OU. We will also prescribe Alphagan bid (E-prescribed) to keep IOP under control, which is slightly elevated at 23mmHg OU today. 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 Guadalupe for follow up exam and OCT. 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 Advised patient not to drive at night. Related to Night blindness Impression/Plan - Re gular follow up appointments with the patient's comprehensive eye doctor were recommended to monitor the patients cataract for progression. Referral for surgical intervention is not indicated at this time. Related to Posterior subcapsular polar age-related cataract, bilateral Return in [address] Guadalupe for follow up exam and OCT. Related to Retinitis pigmentosa Impression/Plan - Di scussed with patient that this is associated with RP. Advised patient not to drive at night. Related to Night blindness Impression/Plan - Re gular follow up appointments with the patient's comprehensive eye doctor were recommended to monitor the patients cataract for progression. Referral for surgical intervention is not indicated at this time. Related to Posterior subcapsular polar age-related cataract, bilateral Impression/Plan - Ar teriolar narrowing secondary to RP - will monitor. 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 Patient's vision shows slight improvement today. Based on today's examination, testing, and the patient's visual symptoms, I am recommending continued topical steroids at a tapering dose (Pred Forte bid OU). This will hopefully reduce the edema and improve vision. IOP within normal range at 20 mmHg OU. 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 Family history of this disease has been reported by the patient, in addition to progressive difficulty seeing at night and decreased peripheral vision. Discussed Vitamin A studies that show slowed progression of the disease with proper dosage; cautioned patient not to consider this vitamin therapy if he is currently a smoker. Mild, stable CME noted today, which we will continue to treat with topical steroids (see plan #1). Advised patient to call with any changes, as worsening macular edema can develop and be treated if necessary. Recommend she continue to have periodic visual field testing with his primary eyecare specialist, Dr. Irving. Related to Retinitis pigmentosa Follow up - Return i n [address] Guadalupe for follow up exam and OCT. Related to Retinitis pigmentosa Return in [address] Guadalupe for follow up exam and OCT. 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 Related to Bilateral changes in retinal vascular appearance Impression/Plan - Rosa gamez has retinitis pigmentosa with typical bone spiculing present bilaterally on examination and diagnostic testing today. Family history of this disease has been reported by the patient, in addition to progressive difficulty seeing at night and decreased peripheral vision. Discussed Vitamin A studies that show slowed progression of the disease with proper dosage; cautioned patient not to consider this vitamin therapy if he is currently a smoker. Associated CME noted today, which we will attempt to treat with topical steroids (see plan #1). Advised patient to call with any changes, as worsening macular edema can develop and be treated if necessary. Recommend she continue to have periodic visual field testing with his primary eyecare specialist, Dr. Irving. Related to Retinitis pigmentosa Impression/Plan - Cy stoid Macular Edema secondary to Retinitis Pigmentosa was noted on examination today. The various treatment options were explained. Based on today's examination, testing, and the patient's visual symptoms, I am recommending a course of topical steroids. This will hopefully reduce the edema and improve vision. Pred Forte tid OU E-prescribed today. We will monitor IOP closely. 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 Guadalupe for follow up exam and OCT. 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 Referral for surgical intervention is not indicated at this time. Related to Posterior subcapsular polar age-related cataract, bilateral Impression/Plan - Di scussed with patient that this is associated with RP. Advised patient not to drive at night. Related to Night blindness - Secondary to Retin itis Pigmentosa. Will continue to monitor for progression. Patient advised to call with any changes prior to his next scheduled appointment. 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 Advised patient not to drive at night. 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 Related to Bilateral changes in retinal vascular appearance - Return in [address] Guadalupe for follow up exam with OCT. Related to Retinitis pigmentosa - Patient found to h ave this inherited form of retinal dystrophy with typical bone spiculing present bilaterally on examination and diagnostic testing today. Family history of this disease has been reported by the patient, in addition to progressive difficulty seeing at night and decreased peripheral vision. Discussed Vitamin A studies that show slowed progression of the disease with proper dosage; cautioned patient not to consider this vitamin therapy if he is currently a smoker. Mild associated CME noted today, which is not significantly affecting his vision. Advised patient to call with any changes, as worsening macular edema can develop and be treated if necessary. Recommend she continue to have periodic visual field testing with his primary eyecare specialist, Dr. Castaneda. Related to Retinitis pigmentosa [facility] Work Phone: [phone] History of Present illness Narrative* Encounter Date Complaint History Of Prese nt Illness retinitis pigmentosa/ CME The 43 year old male presents for evaluation of Retinitis pigmentosa/CME in the right eye and left eye. Patient reports vision has gotten worse since last year. States he has been having difficulty at work. States he is unable to work due to vision. Patient has paperwork present today. Reports vision becomes blurred at first and then will fade out where he cannot see in front of him. Denies current flashes of light or floaters. Denies ocular pain. Patient is using artificial tears PRN. CMD The 43 year old patient presents for evaluation of CMD in the right eye and left eye. Patient reports stable vision. Negative floaters and eye pain. Continued intermittent flashes OU. No complaints from the patient at this time. Retinitis Pigmentosa The 42 year old male presents for evaluation of Retinitis Pigmentosa in the right eye and left eye. Patient reports he is unsure if his vision has changed over the last couple years. Patient notes he has tunnel vision as well as blurry vision in both OS>OD. Patient notes he has floaters in both eyes, but denies ocular pain or flashes of light in both eyes. blurry vision The 38 year old male called for an emergency visit due to blurry vision in both eyes. The patient reports he believes the alphagan is causing increased blurred vision along with matter discharge and redness ou. The patient states the symptoms are worse at his workplace due to the lighting. The patient stopped the alphagan drop one week ago and reports vision still blurry but the redness and mattering have decreased. It affects both near and far vision. The symptom is constant. In addition, the condition is associated with daily activity and chores. The patient does report some flashes and stabbing pain intermittently in both eyes. 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 The patient called for an emergency visit due to increased photophobia ou, much more trouble with lights at work, both eyes are burning and uncomfortable most of the time. These symptoms have gotten worse since last exam in July. It affects both near and far vision. The symptom is constant. In addition, the condition is associated with daily activity and chores. Associated symptoms include: flashes and floaters. bright flashes of light The theresa ent reports several episodes bright flashes of light centrally in both eyes. The onset was sudden. The symptom is occasional. It lasts a few seconds and has happened maybe 4-5 times since last visit 6 weeks ago. 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 The patient reports stable blurry vision since last exam 6 weeks ago. It affects both near and far vision. The symptom is constant. In addition, the condition is associated with daily activity and chores. Patient denies floaters and eye pain. Patient reports he ran out of Alphagan drops on 08-08-18, has not used any drops since then. 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 The patient is unaware of any vision changes since last exam 6 weeks ago. It affects both near and far vision. The symptom is constant. In addition, the condition is associated with daily activity and chores. Patient denies eye pain and flashes. flashes The patient repo rts flashes daily but unsure which eye. The affect his ability to perform daily tasks per patient. blurred vision The patient is p resent for evaluation of blurred vision in the right eye and left eye. It occurs all the time. It affects both near and far vision. The symptom is constant. In addition, the condition is associated with daily activity and chores. Patient denies eye pain and floaters. The patient thought the Alphagan was causing blurry vision and stopped the drops for about 2 weeks, restarted this past Sunday. CME The 38 year old male presents for evaluation of CME in the right eye and left eye. blurry vision The patient is p resent for evaluation of blurry vision in the right eye and left eye since his last visit x3 months ago. Patient notes it is mild and mostly at night. Denies flashes, floaters and eye pain. Patient notes certain light affects his vision. CME The 37 year old male presents for evaluation of CME in the right eye and left eye. stable vision The patient repo rts stable vision in the right eye and left eye for 1 month. The onset was gradual. It affects both near and far vision. The symptom is constant. It occurs all the time. 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 blurry vision improvement The rosa gamez notes that the blurry vision OU has improved gradually over the past 5 weeks since his last exam. The patient denies eye pain, flashes, floaters. Patient has been using the drops 3x daily as directed. 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 blurry vision The patient comp lains of worsening blurry vision in the right eye and left eye. It started about 7 months ago. The onset was gradual. It affects both near and far vision. The symptom is constant. It occurs all the time. The condition is severe. The condition is described as fuzzy vision. possible new cystic edema The 37 year old male presents for evaluation of possible new cystic edema in the right eye and left eye. blurry vision The 35 year old male presents for evaluation of blurry vision in both eyes. It started about 2 years ago. It affects both near and far vision. The symptom is intermittent. It occurs with no pattern. The condition is mild. The condition is described as itchy. In addition, the condition is associated with sunlight/headlights. The patient denies flashes, eye pain, headaches. Family history of RP-Mother, grandmother. 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 Guadalupe for follow up exam and OCT. 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 Guadalupe for follow up exam and OCT. 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 Guadalupe for follow up exam and OCT. 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 Guadalupe for follow up exam and OCT. 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 Guadalupe for follow up exam and OCT. 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 Guadalupe for follow up exam and OCT. 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 Advised patient not to drive at night. Related to Night blindness Impression/Plan - Re gular follow up appointments with the patient's comprehensive eye doctor were recommended to monitor the patients cataract for progression. Referral for surgical intervention is not indicated at this time. Related to Posterior subcapsular polar age-related cataract, bilateral Impression/Plan - Ar teriolar narrowing secondary to RP - will monitor. Related to Bilateral changes in retinal vascular appearance Impression/Plan - Rosa gamez has retinitis pigmentosa with typical bone spiculing present bilaterally on examination and diagnostic testing today. Family history of this disease has been reported by the patient, in addition to progressive difficulty seeing at night and decreased peripheral vision. Discussed Vitamin A studies that show slowed progression of the disease with proper dosage; cautioned patient not to consider this vitamin therapy if he is currently a smoker. Improving CME noted today, which we will continue to treat with topical steroids (see plan #1). Advised patient to call with any changes, as worsening macular edema can develop and be treated if necessary. Recommend she continue to have periodic visual field testing with his primary eyecare specialist, Dr. Irving. 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 Patient is responding to the topical steroids; vision and edema show slight improvement today. Based on today's examination, testing, and the patient's visual symptoms, I am recommending continued Pred Forte bid OU. We will also prescribe Alphagan bid (E-prescribed) to keep IOP under control, which is slightly elevated at 23mmHg OU today. 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 Guadalupe for follow up exam and OCT. 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 Guadalupe for follow up exam and OCT. Related to Retinitis pigmentosa Impression/Plan - Di scussed with patient that this is associated with RP. Advised patient not to drive at night. Related to Night blindness Impression/Plan - Re antonio follow up appointments with the patient's comprehensive eye doctor were recommended to monitor the patients cataract for progression. Referral for surgical intervention is not indicated at this time. Related to Posterior subcapsular polar age-related cataract, bilateral Impression/Plan - Ar teriolar narrowing secondary to RP - will monitor. 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 Patient's vision shows slight improvement today. Based on today's examination, testing, and the patient's visual symptoms, I am recommending continued topical steroids at a tapering dose (Pred Forte bid OU). This will hopefully reduce the edema and improve vision. IOP within normal range at 20 mmHg OU. 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 Family history of this disease has been reported by the patient, in addition to progressive difficulty seeing at night and decreased peripheral vision. Discussed Vitamin A studies that show slowed progression of the disease with proper dosage; cautioned patient not to consider this vitamin therapy if he is currently a smoker. Mild, stable CME noted today, which we will continue to treat with topical steroids (see plan #1). Advised patient to call with any changes, as worsening macular edema can develop and be treated if necessary. Recommend she continue to have periodic visual field testing with his primary eyecare specialist, Dr. Irving. Related to Retinitis pigmentosa Follow up - Return i n [address] Guadalupe for follow up exam and OCT. Related to Retinitis pigmentosa Return in [address] Guadalupe for follow up exam and OCT. 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 Referral for surgical intervention is not indicated at this time. Related to Posterior subcapsular polar age-related cataract, bilateral Impression/Plan - Di scussed with patient that this is associated with RP. Advised patient not to drive at night. Related to Night blindness Impression/Plan - Ar teriolar narrowing secondary to RP - will monitor. Related to Bilateral changes in retinal vascular appearance Impression/Plan - Pa vera has retinitis pigmentosa with typical bone spiculing present bilaterally on examination and diagnostic testing today. Family history of this disease has been reported by the patient, in addition to progressive difficulty seeing at night and decreased peripheral vision. Discussed Vitamin A studies that show slowed progression of the disease with proper dosage; cautioned patient not to consider this vitamin therapy if he is currently a smoker. Associated CME noted today, which we will attempt to treat with topical steroids (see plan #1). Advised patient to call with any changes, as worsening macular edema can develop and be treated if necessary. Recommend she continue to have periodic visual field testing with his primary eyecare specialist, Dr. Irving. Related to Retinitis pigmentosa Impression/Plan - Cy stoid Macular Edema secondary to Retinitis Pigmentosa was noted on examination today. The various treatment options were explained. Based on today's examination, testing, and the patient's visual symptoms, I am recommending a course of topical steroids. This will hopefully reduce the edema and improve vision. Pred Forte tid OU E-prescribed today. We will monitor IOP closely. 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 Guadalupe for follow up exam and OCT. 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 Guadalupe for follow up exam with OCT. Related to Retinitis pigmentosa - Patient found to h ave this inherited form of retinal dystrophy with typical bone spiculing present bilaterally on examination and diagnostic testing today. Family history of this disease has been reported by the patient, in addition to progressive difficulty seeing at night and decreased peripheral vision. Discussed Vitamin A studies that show slowed progression of the disease with proper dosage; cautioned patient not to consider this vitamin therapy if he is currently a smoker. Mild associated CME noted today, which is not significantly affecting his vision. Advised patient to call with any changes, as worsening macular edema can develop and be treated if necessary. Recommend she continue to have periodic visual field testing with his primary eyecare specialist, Dr. Castaneda. 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 Will continue to monitor for progression. Patient advised to call with any changes prior to his next scheduled appointment. 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 Advised patient not to drive at night. 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 Related to Bilateral changes in retinal vascular appearance [facility] Work Phone: [phone] History of Present illness Narrative* Encounter Date Complaint History Of Prese nt Illness CMD The 43 year old patient presents for evaluation of CMD in the right eye and left eye. Patient reports stable vision. Negative floaters and eye pain. Continued intermittent flashes OU. No complaints from the patient at this time. Retinitis Pigmentosa The 42 year old male presents for evaluation of Retinitis Pigmentosa in the right eye and left eye. Patient reports he is unsure if his vision has changed over the last couple years. Patient notes he has tunnel vision as well as blurry vision in both OS>OD. Patient notes he has floaters in both eyes, but denies ocular pain or flashes of light in both eyes. blurry vision The 38 year old male called for an emergency visit due to blurry vision in both eyes. The patient reports he believes the alphagan is causing increased blurred vision along with matter discharge and redness ou. The patient states the symptoms are worse at his workplace due to the lighting. The patient stopped the alphagan drop one week ago and reports vision still blurry but the redness and mattering have decreased. It affects both near and far vision. The symptom is constant. In addition, the condition is associated with daily activity and chores. The patient does report some flashes and stabbing pain intermittently in both eyes. 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 The patient called for an emergency visit due to increased photophobia ou, much more trouble with lights at work, both eyes are burning and uncomfortable most of the time. These symptoms have gotten worse since last exam in July. It affects both near and far vision. The symptom is constant. In addition, the condition is associated with daily activity and chores. Associated symptoms include: flashes and floaters. bright flashes of light The theresa ent reports several episodes bright flashes of light centrally in both eyes. The onset was sudden. The symptom is occasional. It lasts a few seconds and has happened maybe 4-5 times since last visit 6 weeks ago. 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 The patient reports stable blurry vision since last exam 6 weeks ago. It affects both near and far vision. The symptom is constant. In addition, the condition is associated with daily activity and chores. Patient denies floaters and eye pain. Patient reports he ran out of Alphagan drops on 08-08-18, has not used any drops since then. 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 The patient is unaware of any vision changes since last exam 6 weeks ago. It affects both near and far vision. The symptom is constant. In addition, the condition is associated with daily activity and chores. Patient denies eye pain and flashes. flashes The patient repo rts flashes daily but unsure which eye. The affect his ability to perform daily tasks per patient. blurred vision The patient is p resent for evaluation of blurred vision in the right eye and left eye. It occurs all the time. It affects both near and far vision. The symptom is constant. In addition, the condition is associated with daily activity and chores. Patient denies eye pain and floaters. The patient thought the Alphagan was causing blurry vision and stopped the drops for about 2 weeks, restarted this past Sunday. CME The 38 year old male presents for evaluation of CME in the right eye and left eye. blurry vision The patient is p resent for evaluation of blurry vision in the right eye and left eye since his last visit x3 months ago. Patient notes it is mild and mostly at night. Denies flashes, floaters and eye pain. Patient notes certain light affects his vision. CME The 37 year old male presents for evaluation of CME in the right eye and left eye. stable vision The patient repo rts stable vision in the right eye and left eye for 1 month. The onset was gradual. It affects both near and far vision. The symptom is constant. It occurs all the time. 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 blurry vision improvement The rosa gamez notes that the blurry vision OU has improved gradually over the past 5 weeks since his last exam. The patient denies eye pain, flashes, floaters. Patient has been using the drops 3x daily as directed. 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 blurry vision The patient comp lains of worsening blurry vision in the right eye and left eye. It started about 7 months ago. The onset was gradual. It affects both near and far vision. The symptom is constant. It occurs all the time. The condition is severe. The condition is described as fuzzy vision. possible new cystic edema The 37 year old male presents for evaluation of possible new cystic edema in the right eye and left eye. blurry vision The 35 year old male presents for evaluation of blurry vision in both eyes. It started about 2 years ago. It affects both near and far vision. The symptom is intermittent. It occurs with no pattern. The condition is mild. The condition is described as itchy. In addition, the condition is associated with sunlight/headlights. The patient denies flashes, eye pain, headaches. Family history of RP-Mother, grandmother. 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, bilateral Impression/Plan Related to Cysto id macular degeneration, bilateral Impression/Plan Related to Retin itis pigmentosa Impression/Plan Related to Retin itis pigmentosa Impression/Plan Related to Cysto id macular degeneration, bilateral Return in 1 Related to Cysto id macular degeneration, bilateral Impression/Plan Related to Cysto id macular degeneration, bilateral Impression/Plan Related to Retin itis pigmentosa Impression/Plan Related to Poste rior subcapsular polar age-related cataract, bilateral Impression/Plan Related to Bilat eral changes in retinal vascular appearance Return in [address] Guadalupe for follow up exam and OCT. 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 Guadalupe for follow up exam and OCT. 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 Guadalupe for follow up exam and OCT. 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 Guadalupe for follow up exam and OCT. 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 Guadalupe for follow up exam and OCT. 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 Guadalupe for follow up exam and OCT. 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 Referral for surgical intervention is not indicated at this time. Related to Posterior subcapsular polar age-related cataract, bilateral Impression/Plan - Ar teriolar narrowing secondary to RP - will monitor. Related to Bilateral changes in retinal vascular appearance Impression/Plan - Pa vera has retinitis pigmentosa with typical bone spiculing present bilaterally on examination and diagnostic testing today. Family history of this disease has been reported by the patient, in addition to progressive difficulty seeing at night and decreased peripheral vision. Discussed Vitamin A studies that show slowed progression of the disease with proper dosage; cautioned patient not to consider this vitamin therapy if he is currently a smoker. Improving CME noted today, which we will continue to treat with topical steroids (see plan #1). Advised patient to call with any changes, as worsening macular edema can develop and be treated if necessary. Recommend she continue to have periodic visual field testing with his primary eyecare specialist, Dr. Irving. 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 Patient is responding to the topical steroids; vision and edema show slight improvement today. Based on today's examination, testing, and the patient's visual symptoms, I am recommending continued Pred Forte bid OU. We will also prescribe Alphagan bid (E-prescribed) to keep IOP under control, which is slightly elevated at 23mmHg OU today. 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 Guadalupe for follow up exam and OCT. 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 Advised patient not to drive at night. Related to Night blindness Return in [address] Guadalupe for follow up exam and OCT. Related to Retinitis pigmentosa Impression/Plan - Rosa vera has retinitis pigmentosa with typical bone spiculing present bilaterally on examination and diagnostic testing today. Family history of this disease has been reported by the patient, in addition to progressive difficulty seeing at night and decreased peripheral vision. Discussed Vitamin A studies that show slowed progression of the disease with proper dosage; cautioned patient not to consider this vitamin therapy if he is currently a smoker. Mild, stable CME noted today, which we will continue to treat with topical steroids (see plan #1). Advised patient to call with any changes, as worsening macular edema can develop and be treated if necessary. Recommend she continue to have periodic visual field testing with his primary eyecare specialist, Dr. Irving. Related to Retinitis pigmentosa Impression/Plan - Mi ld, persistent Cystoid Macular Edema secondary to Retinitis Pigmentosa. Patient's vision shows slight improvement today. Based on today's examination, testing, and the patient's visual symptoms, I am recommending continued topical steroids at a tapering dose (Pred Forte bid OU). This will hopefully reduce the edema and improve vision. IOP within normal range at 20 mmHg OU. 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 Related to Bilateral changes in retinal vascular appearance Impression/Plan - Re gular follow up appointments with the patient's comprehensive eye doctor were recommended to monitor the patients cataract for progression. Referral for surgical intervention is not indicated at this time. Related to Posterior subcapsular polar age-related cataract, bilateral Impression/Plan - Di scussed with patient that this is associated with RP. Advised patient not to drive at night. Related to Night blindness Follow up - Return i n [address] Guadalupe for follow up exam and OCT. Related to Retinitis pigmentosa Return in [address] Guadalupe for follow up exam and OCT. 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 Advised patient not to drive at night. Related to Night blindness Impression/Plan - Ar teriolar narrowing secondary to RP - will monitor. Related to Bilateral changes in retinal vascular appearance Impression/Plan - Rosa vera has retinitis pigmentosa with typical bone spiculing present bilaterally on examination and diagnostic testing today. Family history of this disease has been reported by the patient, in addition to progressive difficulty seeing at night and decreased peripheral vision. Discussed Vitamin A studies that show slowed progression of the disease with proper dosage; cautioned patient not to consider this vitamin therapy if he is currently a smoker. Associated CME noted today, which we will attempt to treat with topical steroids (see plan #1). Advised patient to call with any changes, as worsening macular edema can develop and be treated if necessary. Recommend she continue to have periodic visual field testing with his primary eyecare specialist, Dr. Irving. Related to Retinitis pigmentosa Impression/Plan - Cy stoid Macular Edema secondary to Retinitis Pigmentosa was noted on examination today. The various treatment options were explained. Based on today's examination, testing, and the patient's visual symptoms, I am recommending a course of topical steroids. This will hopefully reduce the edema and improve vision. Pred Forte tid OU E-prescribed today. We will monitor IOP closely. 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 Guadalupe for follow up exam and OCT. 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 Referral for surgical intervention is not indicated at this time. Related to Posterior subcapsular polar age-related cataract, bilateral - Patient found to h ave this inherited form of retinal dystrophy with typical bone spiculing present bilaterally on examination and diagnostic testing today. Family history of this disease has been reported by the patient, in addition to progressive difficulty seeing at night and decreased peripheral vision. Discussed Vitamin A studies that show slowed progression of the disease with proper dosage; cautioned patient not to consider this vitamin therapy if he is currently a smoker. Mild associated CME noted today, which is not significantly affecting his vision. Advised patient to call with any changes, as worsening macular edema can develop and be treated if necessary. Recommend she continue to have periodic visual field testing with his primary eyecare specialist, Dr. Castaneda. 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 Will continue to monitor for progression. Patient advised to call with any changes prior to his next scheduled appointment. 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 Advised patient not to drive at night. 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 Related to Bilateral changes in retinal vascular appearance - Return in [address] Guadalupe for follow up exam with OCT. Related to Retinitis pigmentosa [facility] Work Phone: [phone] NoteHISTORY: Numbness and tingling in bilateral hands/legs, headache PROCEDURE: [employer] VCT 64. With and without IV contrast, axial images of the brain were performed. FINDINGS: No worrisome intra- or extra-axial mass lesions, mass effect or hemorrhage are identified. No evidence of major vessel ischemia is noted. No abnormal areas of intraparenchymal, extradural or meningeal enhancement are identified. Ventricular size is normal for this age, and commensurate with the cerebral sulci. Calvarium, mastoid air cells, paranasal sinuses and orbital contents are unremarkable. IMPRESSION: Normal pre- and postcontrast brain CT. Report reported and signed by Jesus Del Angel on 10/10/2021 1525[facility] SpecialistConsult note* Clinical Note Date No Information [facility] Work Phone: Discharge summary* Clinical Note Date No Information [facility] Work Phone: Evaluation note* Type Assessment Date No Information [facility] Work Phone: History and physical note* Clinical Note Date No Information [facility] Work Phone: Progress note* Clinical Note Date No Information [facility] Work Phone: Reason for referral (narrative)* Reason For Referral No Information [facility] Work Phone: Summary Purpose Family History Family Member Type Diagnosis Age At Onset Problem (finding) Family history of Retinitis pigmentosa-mother, grandmother Advance Directives Directive Yes / No Effective Date File Name No Information Additional Source Comments (unrecognized sect ion and content) No Status Records FoundNo Status Records FoundNo Status Records FoundNo Status Records FoundNo Status Records FoundNo Status Records FoundNo Status Records Found INFORMATION SOURCE (unrecogn ized section and content) DATE CREATED AUTHOR 04/27/2018 [facility] DATE CREATED AUTHOR AUTHOR'S ORGANIZ ATION 01/29/2019 [facility] DATE CREATED AUTHOR AUTHOR'S ORGANIZ ATION 02/11/2020 [facility] DATE CREATED AUTHOR AUTHOR'S ORGANIZ ATION 10/11/2021 [facility] dical Specialist DATE CREATED AUTHOR AUTHOR'S ORGANIZ ATION 07/04/2022 [facility] DATE CREATED AUTHOR AUTHOR'S ORGANKERWIN ATION 01/09/2024 [facility] dical Specialists [facility] DATE CREATED AUTHOR AUTHOR'S ORGANIZ ATION 08/11/2024 [facility] nstitute FOR RECORDS PERTAINING TO PATIENTS WHO ARE OR HAVE BEEN ENROLLED IN A CHEMICAL DEPENDENCY/SUBSTANCEABUSE PROGRAM, SOME INFORMATION MAY BE OMITTED. This clinical summary was aggregated from multiple sources. Caution should be exercised in using it in the provision of clinical care. This summary normalizes information from multiple sources, and as a consequence, information in this document may materially change the coding, format and clinical context of patient data. In addition, data may be omitted in some cases. CLINICAL DECISIONS SHOULD BE BASED ON THE PRIMARY CLINICAL RECORDS. [facility] [employer] provides no warranty or guarantee of the accuracy or completeness of information in this document.
--- NOTE | 2024-09-07 20:07 | PC.NURSE ---
complains of dizziness today while standing outside watching the dog, around 4:00pm
--- NOTE | 2024-09-07 20:09 | ECG_ITS ---
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 Measurements Intervals [place] Rate: 108 P: 36 FL: 114 QRS: 10 QRSD: 82 T: 71 QT: 322 QTc: 385 Interpretive Statements 1120 Sinus tachycardia 2210 Short [place] interval 4068 Nonspecific [place] abnormality 8102 Low QRS voltage in chest leads 9150 abnormal ECG Compared to ECG 04/01/2023 08:08:56 No significant changes Electronically Signed On 09-07-2024 23:04:02 EDT by SB CARTWRIGHT M.D.
--- NOTE | 2024-09-07 20:11 | ED.DIZZY1 ---
HPI - Dizziness General Chief Complaint: Dizziness Stated Complaint: DIZZINESS, HEADACHE, NUMBNESS Time Seen by Provider: 09/07/24 19:56 Source: patient Mode of arrival: walk-in Limitations: no limitations History of Present Illness HPI Narrative: This 44-year-old male presents for evaluation of an episode of dizziness and shortness of breath. He does not smoke. He states he was outside in the yard with his dog and suddenly could not catch his breath. He fell down onto his knees. He states he still has some degree of dizziness which is worse with positional changes. He also complains of some numbness and tingling in his right hand and right leg. That started approximately an hour ago and has started to resolve. He denies any chest pain or specific shortness of breath at this time. He has no focal neurologic symptoms. He denies any nausea vomiting or diarrhea. He denies any constipation. He has not had a fever. Related Data Home Medications ?Medication ?Instructions ?Recorded ?Confirmed atorvastatin 20 mg tablet 20 mg PO DAILY 04/01/23 09/07/24 hydrochlorothiazide 50 mg tablet 50 mg PO DAILY 04/01/23 09/07/24 metoprolol tartrate 25 mg tablet 25 mg PO Q12H 04/01/23 09/07/24 potassium chloride 20 mEq 20 meq PO DAILY 04/01/23 09/07/24 tablet,extended release dorzolamide 2 % eye drops drp ophthalmic (eye) 09/07/24 Previous Rx's ?Medication ?Instructions ?Recorded guaifenesin 600 mg tablet, 600 mg PO BID PRN cough #20 tabs 04/01/23 extended release 12 hr (Mucinex) potassium chloride 20 mEq 40 meq (2 x 20 mEq) PO DAILY 3 04/01/23 tablet,extended release days #6 tabs prednisone 50 mg tablet 50 mg PO DAILY 3 days #3 tabs 04/01/23 Allergies Allergy/AdvReac Type Severity Reaction Status Date / Time No Known Drug Allergies Allergy Verified 09/07/24 19:56 Review of Systems ROS Status of ROS 10 or more systems reviewed and unremarkable except as noted in history and below [facility] Medical History (Updated 09/07/24 @ 23:39 by Sharon Dinh MD) High cholesterol ?E78.00 - Pure hypercholesterolemia, unspecified (ICD-10) Hypertension ?I10 - Essential (primary) hypertension (ICD-10) Social History Little interest or pleasure in doing things: not at all Feeling down, depressed, or hopeless: not at all Exam Narrative Exam Narrative: Vital signs and Nursing Notes reviewed: Patient is afebrile, he is tachycardic with a pulse of 112, blood pressure is elevated 152/118 General: Awake, alert, oriented, no acute distress, lying comfortably on the stretcher HEENT: Normocephalic atraumatic, mucous membranes are moist and pink, eyes are clear, normal conjunctiva, vision is limited but at the patient's baseline Neck: Supple, no meningeal signs, no anterior or posterior cervical lymphadenopathy Chest: Lungs are clear to auscultation with good air entry, there is no wheezing rhonchi or rales appreciated no accessory muscle use, patient is speaking in complete sentences-no chest wall tenderness to palpation CVS: Regular rate and rhythm S1-S2, tachycardic on arrival at 112, no murmurs rubs or gallops, pulses are brisk and equal bilaterally ABD: Soft, nondistended, nontender, no rebound guarding or rigidity, bowel sounds are normal, no pulsatile masses appreciated Extremities: Moving all extremities, no lower extremity tenderness or swelling noted, negative Homans' sign, pulses are brisk and equal bilaterally Skin: Normal in appearance without rash,pallor, petechiae or purpura Neuro: No focal deficits, speech is clear, it software developer strength is intact, negative pronator drift, upper and lower extremity strength and sensation is intact, patient is able to oppose thumb and all fingers vision is limited but this is a chronic condition Constitutional Vital Signs, click to edit/add: Last Vital Signs Temp 98.2 F 09/07/24 20:03 Pulse 99 H 09/07/24 23:40 Resp 18 09/07/24 23:40 BP 119/78 09/07/24 23:31 Pulse Ox 97 09/07/24 23:40 O2 Del Method Room Air 09/07/24 20:03 Course Vital Signs Vital signs: Vital Signs Pulse Oximetry 97 09/07/24 19:58 Temperature 98.2 F 09/07/24 20:03 Pulse Rate 99 H 09/07/24 23:40 Respiratory Rate 18 09/07/24 23:40 Blood Pressure 119/78 09/07/24 23:31 Pulse Oximetry 97 09/07/24 23:40 Oxygen Delivery Method Room Air 09/07/24 20:03 MDM - Dizziness MDM Narrative Medical decision making narrative: This 44-year-old male with a history of hypokalemia who does take oral potassium at home and also has asthma presents for evaluation of an episode of severe shortness of breath at home while outside with his dog. He states he was also very dizzy. He complained of a mild headache. He stated initially he had some tingling of his hands and feet. The tingling had mostly resolved. His neuroexam was normal. EKG done upon arrival was sinus tachycardia at 108 bpm. An IV was placed and he was medicated with aspirin due to the complaint of shortness of breath and IV fluids. Routine labs are ordered and are reviewed. His white count is elevated at 17.9 without any sign of infection. He has not had any fever. He denies any abdominal pain. He does not have any skin rash or cough. This may be reactive in nature and due to steroid use. His hemoglobin is stable. Electrolytes are normal with the exception of a potassium of 2.7. Has a normal troponin and delta troponin. He has a normal D-dimer. While in emergency department he complained that he was feeling restless and had chest pain and a repeat EKG was ordered that is a sinus rhythm at 100 bpm with a short WA interval and otherwise normal. CT scan of the brain was ordered due to his complaint of dizziness and tingling in his hands. The CT scan was read by radiology with no acute findings. A chest x-ray was ordered and I reviewed it myself. There is no acute pulmonary infiltrate, there is normal mediastinum and normal cardiac borders. He was given IV and oral potassium replacement in the emergency department and remained hemodynamically stable. I did offer him admission due to his multitude of symptoms including numbness, tingling, dizziness and shortness of breath. He felt comfortable being discharged home. He states he does have a history of asthma but rarely uses his inhalers and did not use it today. He did not have any wheezing rhonchi or rales upon arrival with normal pulse ox and normal respiratory rate. He states he will take his oral potassium replacement as prescribed and follow-up closely with his family physician. Medical Records Attestation: I reviewed the patient's medical records. Lab Data Attestation: I reviewed the patient's lab results. Labs: Lab Results 09/07/24 09/07/24 09/07/24 Range/Units 20:20 22:25 22:27 WBC 17.9 H (4.0-11.0) 10^3/uL RBC 5.55 (4.70-6.10) 10^6/uL Hgb 15.4 (14.0-18.0) g/dL Hct 46.9 (42.0-54.0) % MCV 84.5 (80.0-94.0) fL MCH 27.7 (25.9-34.0) pg MCHC 32.8 (29.9-35.2) g/dL RDW 18.8 H (11.0-15.0) % Plt Count 440 (150-450) 10^3/uL MPV 8.6 L (9.5-13.5) fL Neut % (Auto) 79.7 H (43.0-75.0) % Lymph % (Auto) 11.6 L (20.5-60.0) % [place] % (Auto) 5.8 (1.7-12.0) % Eos % (Auto) 1.7 (0.9-7.0) % Baso % (Auto) 0.5 (0.2-2.0) % Neut # (Auto) 14.3 H (1.4-6.5) 10^3/uL Lymph # (Auto) 2.1 (1.2-3.8) 10^3/uL [place] # (Auto) 1.0 H (0.3-0.8) 10^3/uL Eos # (Auto) 0.3 (0.0-0.7) 10^3/uL Baso # (Auto) 0.1 (0.0-0.1) 10^3/uL Abs Immat Gran (auto) 0.13 H (0.00-0.03) 10^3/uL Imm/Tot Granulo (auto) 0.7 H (0.0-0.5) % D-Dimer 0.19 (<=0.59) mg/L FEU Sodium 136 (136-145) mmol/L Potassium 2.7 L* (3.5-5.1) mmol/L Chloride 97 L (98-107) mmol/L Carbon Dioxide 30.1 (21.0-32.0) mmol/L Anion Gap 11.6 BUN 15.0 (7.0-18.0) mg/dL Creatinine 1.29 (0.70-1.30) mg/dL Est GFR ( Amer) >60 (>=60 mL/min/1.73m^2) Est GFR (Non-Af Amer) >60 (>=60 mL/min/1.73m^2) BUN/Creatinine Ratio 11.6 Glucose 117 H (74-106) mg/dL Calcium 9.2 (8.5-10.1) mg/dL Total Bilirubin 0.3 (0.2-1.0) mg/dL AST 21 (15-37) U/L ALT 42 (16-63) U/L Alkaline Phosphatase 116 (46-116) U/L Troponin I High Sens 4.8 4.9 (4.0-76.1) pg/mL Total Protein 8.1 (6.4-8.2) g/dL Albumin 3.0 L (3.4-5.0) g/dL Globulin 5.1 g/dL Albumin/Globulin Ratio 0.6 Urine Color Yellow (YELLOW) Urine Clarity Clear (CLEAR) Urine pH 6.0 (5.0-9.0) Ur Specific [place] 1.015 (1.005-1.025) Urine Protein Negative (NEG/TRACE) mg/dL Urine Glucose (UA) Negative (NEGATIVE) mg/dL Urine Ketones Negative (NEGATIVE) mg/dL Urine Occult Blood Negative (NEGATIVE) Urine Nitrite Negative (NEGATIVE) Urine Bilirubin Negative (NEGATIVE) Urine Urobilinogen 0.2 (0.2-1.0) EU/dL Ur Leukocyte Esterase Negative (NEGATIVE) Urine RBC None seen (0-2) #/HPF Urine WBC None seen (NONE SEEN) #/HPF Ur Squamous Epith Cells None seen (NONE/RARE) #/LPF Urine Crystals None seen (None Seen) #/HPF Urine Bacteria None seen (NONE SEEN) #/HPF Urine Casts None seen (NONE SEEN) #/LPF Urine Mucus None seen (NONE SEEN) Ur Culture Indicated? No ECG Data Attestation: I personally reviewed and interpreted this ECG as follows: (Sinus tachycardia at 108 bpm, short [place] interval, nonspecific ST changes, no acute ST segment elevation or T wave inversion) Discharge Plan Discharge Chief Complaint: Dizziness Clinical Impression: Acute hypokalemia, Dizziness Patient Disposition: Home, Self-Care Time of Disposition Decision: 23:39 Condition: Good Prescriptions / Home Meds: No Action dorzolamide 2 % drops OPHTHALMIC (EYE) atorvastatin 20 mg tablet 20 mg PO DAILY hydrochlorothiazide 50 mg tablet 50 mg PO DAILY metoprolol tartrate 25 mg tablet 25 mg PO Q12H potassium chloride 20 mEq tablet extended release 20 meq PO DAILY prednisone 50 mg tablet 50 mg PO DAILY 3 Days Qty: 3 0RF guaifenesin [Mucinex] 600 mg tablet extended release 12hr 600 mg PO BID PRN (Reason: cough) Qty: 20 0RF potassium chloride 20 mEq tablet extended release 40 meq PO DAILY 3 Days Qty: 6 0RF Print Language: Tajik Instructions: Hypokalemia (ED), Dizziness (ED) Referrals: ALEXA BELL [Primary Care Provider, Family Practice] - 1 week Discharge Date/Time: 09/07/24 23:51
[2024-09-07 20:33] LABS: Basophils Absolute Auto 0.1 10^3/uL (0.0-0.1); Basophils Percent Auto 0.5 % (0.2-2.0); Eosinophils Absolute Auto 0.3 10^3/uL (0.0-0.7); Eosinophils Percent Auto 1.7 % (0.9-7.0); Hematocrit 46.9 % (42.0-54.0); Hemoglobin 15.4 g/dL (14.0-18.0); Immature Granulocytes Abs Auto 0.13 10^3/uL (0.00-0.03); Immature Granulocytes Pct Auto 0.7 % (0.0-0.5); Lymphocytes Absolute Auto 2.1 10^3/uL (1.2-3.8); Lymphocytes Percent Auto 11.6 % (20.5-60.0); Mean Corpuscular HGB Conc 32.8 g/dL (29.9-35.2); Mean Corpuscular Hemoglobin 27.7 pg (25.9-34.0); Mean Corpuscular Volume 84.5 fL (80.0-94.0); Mean Platelet Volume 8.6 fL (9.5-13.5); Monocytes Percent Auto 5.8 % (1.7-12.0); Neutrophils Absolute Auto 14.3 10^3/uL (1.4-6.5); Neutrophils Percent Auto 79.7 % (43.0-75.0); Platelet Count 440 10^3/uL (150-450); Red Blood Count 5.55 10^6/uL (4.70-6.10); Red Cell Distribution Width 18.8 % (11.0-15.0); White Blood Count 17.9 10^3/uL (4.0-11.0)
[2024-09-07] MEDS: ASPIRIN 81 MG TAB.CHEW 324 MG PO (20:37)
[2024-09-07] MEDS: 0.9 % SODIUM CHLORIDE 1,000 ML 1000 ML IV (20:39)
[2024-09-07 20:48] LABS: D Dimer 0.19 mg/L FEU (<=0.59)
[2024-09-07 20:56] LABS: Alanine Aminotransferase 42 U/L (16-63); Albumin Globulin Ratio 0.6; Alkaline Phosphatase 116 U/L (46-116); Anion Gap 11.6; Aspartate Amino Transferase 21 U/L (15-37); BUN Creatinine Ratio 11.6; Bilirubin Total 0.3 mg/dL (0.2-1.0); Calcium 9.2 mg/dL (8.5-10.1); Carbon Dioxide 30.1 mmol/L (21.0-32.0); Chloride 97 mmol/L (98-107); Estimated GFR (African America >60 (>=60 mL/min/1.73m^2); Estimated GFR (Non-African Ame >60 (>=60 mL/min/1.73m^2); Globulin 5.1 g/dL; Glucose 117 mg/dL (74-106); Sodium 136 mmol/L (136-145); Total Protein 8.1 g/dL (6.4-8.2); Troponin I High Sensitivity 4.8 pg/mL (4.0-76.1)
[2024-09-07 20:59] LABS: Potassium 2.7 mmol/L (3.5-5.1)
[2024-09-07] MEDS: POTASSIUM CHLORIDE IN WATER 10 MEQ/100 ML PREMIX 100 MEQ IV (21:09)
[2024-09-07] MEDS: POTASSIUM BICARBONATE/CIT 25 MEQ TABLET EFF 50 MEQ PO (21:09)
--- NOTE | 2024-09-07 21:42 | ECG_ITS ---
[facility] Test Date: 2024-09-07 Pat Name: GAMA WEINBERG Department: Room: - Gender: Male Slot Host: : 1980 Requested By: [id number] Order Number: [id number] Reading MD: SB CARTWRIGHT M.D. Measurements Intervals [place] Rate: 100 P: 46 NE: 114 QRS: 24 QRSD: 80 T: 70 QT: 332 QTc: 389 Interpretive Statements 1120 Sinus tachycardia 2210 Short NE interval 8102 Low QRS voltage in chest leads 9150 abnormal ECG Compared to ECG 09/07/2024 20:16:44 No significant changes Electronically Signed On 09-07-2024 23:04:32 EDT by SB CARTWRIGHT M.D.
--- NOTE | 2024-09-07 22:34 | PC.NURSE ---
this patient ambulated to the restroom and back to his room without voices any concerns and this patient's gait during this time steady. this patient had 250 ml of clear yellow urine and walked this sample and the 2nd trop blood draw down to lab dept. this patient voices no concerns and shows no signs of distress. this patient is aware that we are waiting on the 2nd result of the 2nd trop and the urine result
[2024-09-07 22:35] LABS: Bilirubin Urine NEGATIVE (NEGATIVE); Blood Urine NEGATIVE (NEGATIVE); Clarity Urine CLEAR (CLEAR); Color Urine YELLOW (YELLOW); Glucose Urine UA NEGATIVE (NEGATIVE); Ketones Urine NEGATIVE (NEGATIVE); Leukocyte Esterase Urine NEGATIVE (NEGATIVE); Nitrite Urine NEGATIVE (NEGATIVE); Protein Urine NEGATIVE (NEG/TRACE); Specific Gravity Urine 1.015 (1.005-1.025); Urobilinogen Urine 0.2 EU/dL (0.2-1.0)
[2024-09-07 22:41] LABS: Bacteria Urine NONE SEEN #/HPF (NONE SEEN); Cast Seen? NONE SEEN #/LPF (NONE SEEN); Crystals Seen? None Seen #/HPF (None Seen); Mucus Urine NONE SEEN (NONE SEEN); RBC Urine NONE SEEN #/HPF (0-2); Squamous Epithelial Cell Urine NONE SEEN #/LPF (NONE/RARE); Urine Culture Indicated NO; WBC Urine NONE SEEN #/HPF (NONE SEEN)
[2024-09-07 22:56] LABS: Troponin I High Sensitivity 4.9 pg/mL (4.0-76.1)
--- NOTE | 2024-09-07 23:41 | ED.GENADUL1 ---
HPI HPI - General Adult General Chief complaint: Dizziness Stated complaint: DIZZINESS, HEADACHE, NUMBNESS Time Seen by Provider: 09/07/24 19:56 Source: patient Mode of arrival: walk-in Limitations: no limitations Related Data Home Medications ?Medication ?Instructions ?Recorded ?Confirmed atorvastatin 20 mg tablet 20 mg PO DAILY 04/01/23 09/07/24 hydrochlorothiazide 50 mg tablet 50 mg PO DAILY 04/01/23 09/07/24 metoprolol tartrate 25 mg tablet 25 mg PO Q12H 04/01/23 09/07/24 potassium chloride 20 mEq 20 meq PO DAILY 04/01/23 09/07/24 tablet,extended release dorzolamide 2 % eye drops drp ophthalmic (eye) 09/07/24 Previous Rx's ?Medication ?Instructions ?Recorded guaifenesin 600 mg tablet, 600 mg PO BID PRN cough #20 tabs 04/01/23 extended release 12 hr (Mucinex) potassium chloride 20 mEq 40 meq (2 x 20 mEq) PO DAILY 3 04/01/23 tablet,extended release days #6 tabs prednisone 50 mg tablet 50 mg PO DAILY 3 days #3 tabs 04/01/23 Allergies Allergy/AdvReac Type Severity Reaction Status Date / Time No Known Drug Allergies Allergy Verified 09/07/24 19:56 [facility] Medical History (Updated 09/07/24 @ 23:39 by Sharon Dinh MD) High cholesterol ?E78.00 - Pure hypercholesterolemia, unspecified (ICD-10) Hypertension ?I10 - Essential (primary) hypertension (ICD-10) Social History Little interest or pleasure in doing things: not at all Feeling down, depressed, or hopeless: not at all Exam Constitutional Vital Signs, click to edit/add: Last Vital Signs Temp 98.2 F 09/07/24 20:03 Pulse 96 H 09/07/24 23:01 Resp 30 H 09/07/24 23:01 BP 129/81 09/07/24 23:01 Pulse Ox 95 09/07/24 23:01 O2 Del Method Room Air 09/07/24 20:03 Course Vital Signs Vital signs: Vital Signs Pulse Oximetry 97 09/07/24 19:58 Temperature 98.2 F 09/07/24 20:03 Pulse Rate 96 H 09/07/24 23:01 Respiratory Rate 30 H 09/07/24 23:01 Blood Pressure 129/81 09/07/24 23:01 Pulse Oximetry 95 09/07/24 23:01 Oxygen Delivery Method Room Air 09/07/24 20:03 Medical Decision Making Lab Data Labs: Lab Results 09/07/24 09/07/24 09/07/24 Range/Units 20:20 22:25 22:27 WBC 17.9 H (4.0-11.0) 10^3/uL RBC 5.55 (4.70-6.10) 10^6/uL Hgb 15.4 (14.0-18.0) g/dL Hct 46.9 (42.0-54.0) % MCV 84.5 (80.0-94.0) fL MCH 27.7 (25.9-34.0) pg MCHC 32.8 (29.9-35.2) g/dL RDW 18.8 H (11.0-15.0) % Plt Count 440 (150-450) 10^3/uL MPV 8.6 L (9.5-13.5) fL Neut % (Auto) 79.7 H (43.0-75.0) % Lymph % (Auto) 11.6 L (20.5-60.0) % [place] % (Auto) 5.8 (1.7-12.0) % Eos % (Auto) 1.7 (0.9-7.0) % Baso % (Auto) 0.5 (0.2-2.0) % Neut # (Auto) 14.3 H (1.4-6.5) 10^3/uL Lymph # (Auto) 2.1 (1.2-3.8) 10^3/uL [place] # (Auto) 1.0 H (0.3-0.8) 10^3/uL Eos # (Auto) 0.3 (0.0-0.7) 10^3/uL Baso # (Auto) 0.1 (0.0-0.1) 10^3/uL Abs Immat Gran (auto) 0.13 H (0.00-0.03) 10^3/uL Imm/Tot Granulo (auto) 0.7 H (0.0-0.5) % D-Dimer 0.19 (<=0.59) mg/L FEU Sodium 136 (136-145) mmol/L Potassium 2.7 L* (3.5-5.1) mmol/L Chloride 97 L (98-107) mmol/L Carbon Dioxide 30.1 (21.0-32.0) mmol/L Anion Gap 11.6 BUN 15.0 (7.0-18.0) mg/dL Creatinine 1.29 (0.70-1.30) mg/dL Est GFR ( Amer) >60 (>=60 mL/min/1.73m^2) Est GFR (Non-Af Amer) >60 (>=60 mL/min/1.73m^2) BUN/Creatinine Ratio 11.6 Glucose 117 H (74-106) mg/dL Calcium 9.2 (8.5-10.1) mg/dL Total Bilirubin 0.3 (0.2-1.0) mg/dL AST 21 (15-37) U/L ALT 42 (16-63) U/L Alkaline Phosphatase 116 (46-116) U/L Troponin I High Sens 4.8 4.9 (4.0-76.1) pg/mL Total Protein 8.1 (6.4-8.2) g/dL Albumin 3.0 L (3.4-5.0) g/dL Globulin 5.1 g/dL Albumin/Globulin Ratio 0.6 Urine Color Yellow (YELLOW) Urine Clarity Clear (CLEAR) Urine pH 6.0 (5.0-9.0) Ur Specific [place] 1.015 (1.005-1.025) Urine Protein Negative (NEG/TRACE) mg/dL Urine Glucose (UA) Negative (NEGATIVE) mg/dL Urine Ketones Negative (NEGATIVE) mg/dL Urine Occult Blood Negative (NEGATIVE) Urine Nitrite Negative (NEGATIVE) Urine Bilirubin Negative (NEGATIVE) Urine Urobilinogen 0.2 (0.2-1.0) EU/dL Ur Leukocyte Esterase Negative (NEGATIVE) Urine RBC None seen (0-2) #/HPF Urine WBC None seen (NONE SEEN) #/HPF Ur Squamous Epith Cells None seen (NONE/RARE) #/LPF Urine Crystals None seen (None Seen) #/HPF Urine Bacteria None seen (NONE SEEN) #/HPF Urine Casts None seen (NONE SEEN) #/LPF Urine Mucus None seen (NONE SEEN) Ur Culture Indicated? No Discharge Plan Discharge Chief Complaint: Dizziness Clinical Impression: Acute hypokalemia, Dizziness Patient Disposition: Home, Self-Care Time of Disposition Decision: 23:39 Condition: Good Prescriptions / Home Meds: No Action dorzolamide 2 % drops OPHTHALMIC (EYE) atorvastatin 20 mg tablet 20 mg PO DAILY hydrochlorothiazide 50 mg tablet 50 mg PO DAILY metoprolol tartrate 25 mg tablet 25 mg PO Q12H potassium chloride 20 mEq tablet extended release 20 meq PO DAILY prednisone 50 mg tablet 50 mg PO DAILY 3 Days Qty: 3 0RF guaifenesin [Mucinex] 600 mg tablet extended release 12hr 600 mg PO BID PRN (Reason: cough) Qty: 20 0RF potassium chloride 20 mEq tablet extended release 40 meq PO DAILY 3 Days Qty: 6 0RF Print Language: Sinhala Instructions: Hypokalemia (ED), Dizziness (ED) Referrals: ALEXA BELL [Primary Care Provider, Family Practice] - 1 week
--- NOTE | 2024-09-07 23:49 | PC.NURSE ---
i gave this patient verbal and written discharge orders and this patient voices yes to understanding these discharge orders. at time of discharge this patient voices no concerns or shows no signs of distress
== END 2024-09-07 23:51 | disposition home or self-care (01) ==
PROVIDERS: Emergency Provider Emergency Medicine; PCP Family Medicine
DX: R42 Dizziness and giddiness (principal); E87.6 Hypokalemia; R06.02 Shortness of breath; J45.909 Unspecified asthma, uncomplicated; R07.9 Chest pain, unspecified
CPT/HCPCS: 36415; 70450; 71045; 80053; 81001; 84484; 85025; 85378; 93005; 96365; 99285; J3480